=== PATIENT | male | born 1960 | race Caucasian/White ===

== ENCOUNTER 2017-03-23 03:02 | Emergency (ER) | payer OTHER ==
[2017-03-23] MEDS ORDERED: methylPREDNISolone 125 MG* 2 ML VIAL IV ONE (03:24)
[2017-03-23] MEDS ORDERED: Famotidine IV* 10 MG/ML 2 ML (20 mg) IV SLOW PU ONE (03:24)
[2017-03-23] MEDS ORDERED: diPHENhydraMINE IV* 25 MG in NS 0.9% 50 ML* 50 ML IVPB ONE (03:24)
[2017-03-23] MEDS ORDERED: diPHENhydraMINE IV* 50 MG/ML 1 ml VIAL (BENADRYL) ONE (03:40)
--- NOTE | 2017-03-23 04:17 | ED ---
Maci Gregorio Rebecca, scribed for Malachi Harley MD on 03/23/17 at 0323 . Allergic Reaction/Systemic - HPI Summary HPI Summary: Pt is a 56 y/o M who presents to ED c/o facial and lip swelling with pruritis hives on the back since 1400 yesterday. Treated sx with chamomile lotion and Benadryl, last taken at approximately 1930. Sx aggravated and alleviated by nothing. Pt reports his only recent change is a new shampoo. No known allergies and he is not aware of what has caused this reaction. - History of Current Complaint Chief Complaint: EDAllergicReaction Time Seen by Provider: 03/23/17 03:10 Hx Obtained From: Patient Onset/Duration: Started hours ago - 1400 yesterday, Still Present Severity Currently: Severe Pain Intensity: 8 Pain Scale Used: 0-10 Numeric Character: Swelling - Facial and lip, Pruritus - Back, Hives - Back Aggravating Factor(s): Nothing Alleviating Factor(s): Nothing - Allergies/Home Medications Allergies/Adverse Reactions: Allergies Allergy/AdvReac Type Severity Reaction Status Date / Time No Known Allergies Allergy Verified 02/26/15 08:17 PMH/Surg Hx/FS Hx/Imm Hx Endocrine/Hematology History: Denies: Hx Diabetes Cardiovascular History: Reports: Hx Coronary Artery Disease, Hx Hypertension - ON MEDICATION FOR GI History: Reports: Hx Gastroesophageal Reflux Disease - IN THE PAST Musculoskeletal History: Reports: Hx Arthritis Sensory History: Reports: Hx Contacts or Glasses - READING GLASSES Denies: Hx Hearing Aid Opthamlomology History: Reports: Hx Contacts or Glasses - READING GLASSES Neurological History: Reports: Hx Migraine - SEEMS TO RELATED TO POLLENS-TX WITH EXCEDRIN MIGRAINE PER PATIENT - Surgical History Surgery Procedure, Year, and Place: 1985-L4/5 DISCECTOMY. 2004-QUADRUPLE BYPASS. 2010-QUADRUPLE BYPASS. 2009-16 STENTS PLACED in legs and heart. RIGHT KNEE ARTHROSCOPY Hx Anesthesia Reactions: No Infectious Disease History: No Infectious Disease History: Denies: Traveled Outside the [place] in Last 30 Days - Family History Known Family History: Positive: Cardiac Disease, Diabetes, Other - [place] - Social History Alcohol Use: Occasionally Substance Use Type: Reports: None Smoking Status (MU): Former Smoker Amount Used/How Often: 1 PPD X 30 YEARS Have You Smoked in the Last Year: No Review of Systems Positive: Other - Facial and lip swelling Positive: Other - Pruritic hives on the back All Other Systems Reviewed And Are Negative: Yes Physical Exam Triage Information Reviewed: Yes Vital Signs On Initial Exam: Initial Vitals Temp Pulse Resp BP Pulse Ox 100.9 F 104 24 120/68 96 03/23/17 03:11 03/23/17 03:11 03/23/17 03:11 03/23/17 03:11 03/23/17 03:11 Vital Signs Reviewed: Yes Appearance: Positive: Well-Appearing, No Pain Distress Skin: Positive: Warm, Other - patchy diffuse yurticarial rash Head/Face: Positive: Other - periorbital and perioral edema Eyes: Positive: ELOISE ENT: Positive: Hearing grossly normal, Pharynx normal Neck: Positive: Supple Respiratory/Lung Sounds: Positive: Clear to Auscultation, Breath Sounds Present Cardiovascular: Positive: RRR Abdomen Description: Positive: Nontender, Soft Bowel Sounds: Positive: Present Musculoskeletal: Positive: Strength/ROM Intact Neurological: Positive: Alert, Oriented to Person Place, Time Diagnostics - Vital Signs Vital Signs Temp Pulse Resp BP Pulse Ox 03/23/17 03:11 100.9 F 104 24 120/68 96 - Laboratory Lab Statement: Any lab studies that have been ordered have been reviewed, and results considered in the medical decision making process. Re-Evaluation - Re-Evaluation First Eval Re-Evaluation Time: 05:11 Change: Improved Comment: Pt is doing significantly better. Allergic Reaction Course/Dx - Course Assessment/Plan: Pt is a 56 y/o M who presents to ED c/o facial and lip swelling with pruritis hives on the back since 1400 yesterday. Treated sx with chamomile lotion and Benadryl, last taken at approximately 1930. Sx aggravated and alleviated by nothing. Pt reports his only recent change is a new shampoo. In the ED course, pt was administered Benadryl, Pepcid and Solu-Medrol which improved sx. Pt will be D/C to home with Dx of allergic reactoin, Rx for Benadyrl, Pepcid and Deltasone and a follow up with his PCP. He understands and agrees. - Diagnoses Provider Diagnoses: Allergic reaction Discharge - Discharge Plan Condition: Stable Disposition: HOME Prescriptions: Famotidine TAB* [Pepcid 20 MG TAB*] 20 mg PO DAILY #10 tab diPHENhydraMINE PO* [Benadryl PO 25 MG TAB*] 25 mg PO Q6H #20 tab predniSONE TAB* [Deltasone TAB*] 40 mg PO DAILY #8 tab Patient Education Materials: General Allergic Reaction (ED) Referrals: Winston Rahman MD [Primary Care Provider] - 3 Days Additional Instructions: Return to ED for any returning or worsening symptoms. The documentation as recorded by the Maci shelley Rebecca accurately reflects the service I personally performed and the decisions made by , Malachi Harley MD.
[2017-03-23 05:36] VITALS: BP 107/66
== END 2017-03-23 05:33 | disposition home or self-care (01) ==
LOC: ED 03:02
DX: T78.40XA Allergy, unspecified, initial encounter (principal); X58.XXXA Exposure to other specified factors, initial encounter; L50.9 Urticaria, unspecified
CPT/HCPCS: 99283; J1200; J2930

== ENCOUNTER 2017-03-23 17:36 | Emergency (ER) | payer OTHER ==
[2017-03-23 17:50] VITALS: BP 121/69
[2017-03-23] MEDS ORDERED: diPHENhydraMINE IV* 50 MG/ML 1 ml VIAL (BENADRYL) IM ONE ×2 (18:02→18:04)
[2017-03-23] MEDS ORDERED: Famotidine TAB* 20 MG PO ONE (18:02)
[2017-03-23] MEDS ORDERED: predniSONE TAB* 20 MG PO ONE (18:02)
--- NOTE | 2017-03-23 18:12 | UC ---
Allergic Reaction HPI - HPI Summary HPI Summary: had an allergic reaction to something yesterday at 1400---at 2 this am he went to the emergency department---rx with pepcid benadryl and solumedrol.. Later today he started the meds---but the welts itching and now swelling have returned - - History of Current Complaint Chief Complaint: UCAllergicReaction Stated Complaint: ALLERGIC REACTION Time Seen by Provider: 03/23/17 17:56 Hx Obtained From: Patient Onset/Duration: Gradual Onset, Lasting Hours, Still Present Severity Initially: Moderate Severity Currently: Moderate Location: Diffuse Character: Swelling, Pruritus Aggrevating Factor(s): Nothing Alleviating Factor(s): Nothing Associated Signs And Symptoms: Positive: Negative - Related Hx Possible Reaction To: Unknown - Allergies/Home Medications Allergies/Adverse Reactions: Allergies Allergy/AdvReac Type Severity Reaction Status Date / Time No Known Allergies Allergy Verified 02/26/15 08:17 PMH/Surg Hx/FS Hx/Imm Hx Previously Healthy: Yes Endocrine History: Dyslipidemia Cardiovascular History: Cardiac Disease, Hypertension - Surgical History Surgical History: Yes Surgery Procedure, Year, and Place: 1985-L4/5 DISCECTOMY. 2004-QUADRUPLE BYPASS. 2010-QUADRUPLE BYPASS. STENTS PLACED in legs and heart. RIGHT KNEE ARTHROSCOPY - Family History Known Family History: Positive: Cardiac Disease, Diabetes, Other - [place] - Social History Occupation: Employed Full-time Lives: With Family Alcohol Use: Occasionally Substance Use Type: None Smoking Status (MU): Former Smoker Amount Used/How Often: 1 PPD X 30 YEARS Have You Smoked in the Last Year: No When Did the Patient Quit Smoking/Using Tobacco: 2004 Review of Systems Constitutional: Negative Skin: Rash - uticaria Eyes: Negative ENT: Negative Respiratory: Negative Cardiovascular: Negative Gastrointestinal: Negative Genitourinary: Negative Motor: Negative Neurovascular: Negative Musculoskeletal: Edema - palms/hands Neurological: Negative Psychological: Negative All Other Systems Reviewed And Are Negative: Yes Physical Exam Triage Information Reviewed: Yes Appearance: Well-Appearing, No Pain Distress, Well-Nourished Vital Signs: Initial Vital Signs Temp 98.4 F 03/23/17 17:38 Pulse 82 03/23/17 17:38 Resp 18 03/23/17 17:38 BP 121/69 03/23/17 17:38 Pulse Ox 99 03/23/17 17:38 Vital Signs Reviewed: Yes Eye Exam: Normal Eyes: Positive: Conjunctiva Clear ENT Exam: Normal ENT: Positive: Normal ENT inspection, Hearing grossly normal, Pharynx normal, TMs normal. Negative: Nasal congestion, Nasal drainage, Trismus, Muffled/ hoarse voice Dental Exam: Normal Neck exam: Normal Neck: Positive: Supple, Nontender Respiratory Exam: Normal Respiratory: Positive: Chest non-tender, Lungs clear, Normal breath sounds, No respiratory distress, No accessory muscle use Cardiovascular Exam: Normal Cardiovascular: Positive: RRR, No Murmur, Pulses Normal, Brisk Capillary Refill Musculoskeletal Exam: Normal Musculoskeletal: Positive: Strength Intact, ROM Intact, No Edema Neurological Exam: Normal Neurological: Positive: Alert, Muscle Tone Normal Psychological Exam: Normal Psychological: Positive: Normal Response To Family Skin: Positive: rashes - urticaria-scattered thighs and abdomen Re-Evaluation - Re-Evaluation First Eval Change: Improved - symptoms resolving---feels better Allergic Reaction Course/Dx - Differential Dx/Diagnosis Differential Diagnosis/HQI/PQRI: Anaphylaxis, Angioedema, Local Allergic Reaction, Urticaria Provider Diagnoses: Urticaria, allergic reaction Discharge - Discharge Plan Condition: Stable Disposition: HOME Patient Education Materials: Urticaria (ED), General Allergic Reaction (ED) Referrals: Winston Rahman MD [Primary Care Provider] - 2 Days Additional Instructions: Continue medications as prescribed by Emergency Department and return as needed- --cool compresses will be helpful as well
== END 2017-03-23 19:31 | disposition home or self-care (01) ==
LOC: UCEAST 17:36
DX: L50.9 Urticaria, unspecified (principal); T78.40XA Allergy, unspecified, initial encounter; E78.5 Hyperlipidemia, unspecified; I10 Essential (primary) hypertension; Z95.1 Presence of aortocoronary bypass graft; Z87.891 Personal history of nicotine dependence
CPT/HCPCS: 96372; 99212; A9270-GY; G0463; J1200; J7512

== ENCOUNTER 2017-03-24 08:38 | Emergency (ER) | payer OTHER ==
[2017-03-24] MEDS ORDERED: EPINEPHrine AMP 1 MG/ML IM ONE (09:10)
--- NOTE | 2017-03-24 09:18 | UC ---
Allergic Reaction HPI - HPI Summary HPI Summary: Started getting painful, itchy, swollen areas on hands, groin, neck, scalp, and face 2 days ago at 1400. Went to the ED for these symptoms at 0200 yesterday, was given IV solumedrol, diphenhydramine, famotidine, and d/kinsey on PO prednisone , famotidine, and diphenhydramine. Came to urgent care last night approx 1800 because symptoms were returning, was given more prednisone, famotidine, and IV benadryl. Took next fose of prednisone this morning, last dose of benadryl at 0400, and swelling in hands, face, scalp, and groin is even worse. Before medical treatment both times yesterday pt had sensation of shortness of breath which resolved after medication. It is back today, though pt denies swelling in tongue, wheezing, or coughing. Has no idea what he's reacting to. - History of Current Complaint Chief Complaint: UCAllergicReaction Stated Complaint: POSSIBLE ALLERGRIC REACTION Time Seen by Provider: 03/24/17 08:58 Hx Obtained From: Patient Onset/Duration: Gradual Onset, Lasting Days Severity Initially: Moderate Severity Currently: Severe Character: Swelling, Pruritus, Pain, Hives Alleviating Factor(s): Antihistamines Associated Signs And Symptoms: Positive: Difficulty Breathing - mild, Rash. Negative: Lightheadedness, Nausea, Throat Tightening - Allergies/Home Medications Allergies/Adverse Reactions: Allergies Allergy/AdvReac Type Severity Reaction Status Date / Time No Known Allergies Allergy Verified 03/24/17 08:52 Home Medications: Home Medications Troy-3 Fatty Acids [Fish Oil] 2 cap PO DAILY 03/24/17 [History Confirmed ] diPHENhydraMINE PO* [Benadryl PO 25 MG TAB*] 2 tab PO Q6H 03/24/17 [History Confirmed 03/24/17] PMH/Surg Hx/FS Hx/Imm Hx Cardiovascular History: Cardiac Disease - bypass, stents - Surgical History Surgical History: Yes Surgery Procedure, Year, and Place: 1985-L4/5 DISCECTOMY. 2004-QUADRUPLE BYPASS. 2010-QUADRUPLE BYPASS. 2009-16 STENTS PLACED in legs and heart. RIGHT KNEE ARTHROSCOPY - Family History Known Family History: Positive: Cardiac Disease, Diabetes, Other - [place] - Social History Alcohol Use: Occasionally Substance Use Type: None Smoking Status (MU): Former Smoker Amount Used/How Often: 1 PPD X 30 YEARS Have You Smoked in the Last Year: No When Did the Patient Quit Smoking/Using Tobacco: 2004 Review of Systems Constitutional: Negative Skin: Rash, Other - marked swelling Eyes: Negative ENT: Negative Respiratory: Negative Cardiovascular: Negative Gastrointestinal: Negative Genitourinary: Negative Motor: Negative Neurovascular: Negative Musculoskeletal: Negative Neurological: Negative Psychological: Negative All Other Systems Reviewed And Are Negative: Yes Physical Exam Triage Information Reviewed: Yes Appearance: Ill-Appearing - very swollen, Obese Vital Signs: Initial Vital Signs Temp 98.8 F 03/24/17 08:55 Pulse 69 03/24/17 08:55 Resp 18 03/24/17 08:55 BP 102/57 03/24/17 08:55 Pulse Ox 97 03/24/17 08:55 Vital Signs Reviewed: Yes Eye Exam: Normal, Other - PERRL Eyes: Positive: Conjunctiva Clear ENT: Positive: Hearing grossly normal, Pharynx normal - widely patent, TMs normal Dental Exam: Normal Neck: Positive: Supple, Nontender Respiratory: Positive: Lungs clear, Normal breath sounds, No respiratory distress, No accessory muscle use, Decreased breath sounds Cardiovascular Exam: Normal Cardiovascular: Positive: RRR, No Murmur Musculoskeletal Exam: Normal Musculoskeletal: Positive: Strength Intact, ROM Intact Neurological: Positive: Alert Psychological Exam: Normal Skin Exam: Other - marked swelling in face, hands, scalp Skin: Positive: rashes - generalized urticaria Re-Evaluation - Re-Evaluation First Eval Re-Evaluation Time: 09:40 Change: Improved - Feels breathing is easier Second Eval Re-Evaluation Time: 09:52 Change: Improved Allergic Reaction Course/Dx - Course Course Of Treatment: Pt agrees that he needs to be near the hospital with his symptoms so out of control despite oral therapy. Will take private car there driven by . - Differential Dx/Diagnosis Differential Diagnosis/HQI/PQRI: Anaphylaxis, Angioedema, Urticaria Provider Diagnoses: Acute allergic reaction. urticaria. angioedema - Physician Notification/Consults Discussed Patient Care With: Jonna Francisco Time Discussed With Above Provider: 09:57 Instructed by Provider To: Will See In ED Discharge - Discharge Plan Condition: Stable Disposition: HOME Patient Education Materials: Urticaria (ED), Angioedema (ED) Referrals: Winston Rahman MD [Primary Care Provider] - Additional Instructions: As we discussed, your symptoms are dangerous and they are not getting better with oral therapy. Because the swelling can affect your breathing, the hospital is the safest place for you. Please have your drive you right there without any other stops or errands.
[2017-03-24 10:05] VITALS: BP 147/73
== END 2017-03-24 10:06 | disposition home or self-care (01) ==
LOC: UCEAST 08:38
DX: T78.40XA Allergy, unspecified, initial encounter (principal); L50.9 Urticaria, unspecified; T78.3XXA Angioneurotic edema, initial encounter; I25.10 Atherosclerotic heart disease of native coronary artery without angina pectoris; Z95.5 Presence of coronary angioplasty implant and graft; Z87.891 Personal history of nicotine dependence
CPT/HCPCS: 96372; 99212; G0463; J0171

== ENCOUNTER 2017-03-24 11:08 | Observation (INO) | payer OTHER ==
[2017-03-24] MEDS ORDERED: Famotidine IV* 10 MG/ML 2 ML (20 mg) IV SLOW PU ONE (11:33)
[2017-03-24] MEDS ORDERED: diPHENhydraMINE IV* 50 MG/ML 1 ml VIAL (BENADRYL) SLOW PUSH ONE (11:33)
[2017-03-24] MEDS ORDERED: Dexamethasone IV* 10 MG in NS 0.9% 50 ML* 50 ML IVPB ONE (11:34)
[2017-03-24] MEDS ORDERED: Dexamethasone IV* 4 MG/ML 1 ML (4 MG) IV SLOW PU ONE (11:34)
[2017-03-24 11:50] LABS: Hematocrit 46 % (42-52); Hemoglobin 15.9 g/dl (14.0-18.0); Mean Corpuscular HGB Conc 35 g/dl (31-36); Mean Corpuscular Hemoglobin 31 pg (27-31); Mean Corpuscular Volume 90 fL (80-94); Mean Platelet Volume 8 um3 (7.4-10.4); Red Cell Distribution Width 14 % (10.5-15); White Blood Count 8.3 10^3/ul (3.5-10.8)
[2017-03-24 12:05] LABS: BUN/Creatinine Ratio 22.3 (8-20); Blood Urea Nitrogen 23 mg/dL (6-24); CO2 Carbon Dioxide 24 mmol/L (22-32); Calcium 9.2 mg/dL (8.6-10.3); Chloride 96 mmol/L (101-111); EGFR African American 95.7 (>60); EGFR Non-African American 74.4 (>60); Glucose 297 mg/dL (70-100); Sodium 129 mmol/L (133-145)
[2017-03-24 12:13] LABS: Anion Gap 9 mmol/L (2-11)
[2017-03-24] MEDS ORDERED: Albuterol/Ipratropium NEB.SOL* Albuterol 2.5 MG/Ipratropium 0.5 MG 3 ML INH ONE (13:58)
[2017-03-24] MEDS ORDERED: Acetaminophen TAB* 325 MG PO PRN (15:02)
[2017-03-24] MEDS ORDERED: Ondansetron INJ* 2 MG/ML VIAL IV PRN (15:02)
[2017-03-24] MEDS ORDERED: LORazepam TAB(*) 1 MG PO PRN (15:09)
[2017-03-24] MEDS ORDERED: NS 0.9% 1000 ML* 1,000 ML IV SCH (15:30)
[2017-03-24] MEDS: diPHENhydraMINE IV* 50 MG/ML 1 ml VIAL (BENADRYL) IV SCH ×2 (15:43→21:20)
[2017-03-24] MEDS ORDERED: diPHENhydraMINE IV* 50 MG in NS 0.9% 50 ML* 50 ML IVPB SCH (16:00)
[2017-03-24] MEDS ORDERED: diPHENhydraMINE IV* 50 MG/ML 1 ml VIAL (BENADRYL) IV SCH (16:00)
[2017-03-24] MEDS: methylPREDNISolone SOD 40 MG* 1 ML VIAL IV SCH ×2 (17:01→23:22)
[2017-03-24] MEDS ORDERED: Famotidine IV* 10 MG/ML 2 ML (20 mg) ONE (20:45)
[2017-03-24] MEDS: Heparin VIAL(*) 5000 UNITS/ML VIAL (FIVE THOUSAND) SUBCUT SCH (21:14)
[2017-03-24] MEDS: Metoprolol Tartrate TAB* 25 MG PO SCH (21:55)
--- NOTE | 2017-03-25 01:59 | HP ---
CC: Dr. Gee * HISTORY AND PHYSICAL: DATE OF ADMISSION: 03/24/17 PRIMARY CARE PROVIDER: Dr. Gee. ATTENDING PHYSICIAN WHILE IN THE HOSPITAL: Dr. Rachelle Wilkins *(report dictated by Christopher Anna NP) CHIEF COMPLAINT: 1. Hives. 2. Pruritus. 3. Swollen lips and eyes. HISTORY OF PRESENT ILLNESS: Mr. Riggs is a 56-year-old male patient, who has a history of CAD, hypertension, hyperlipidemia, erectile dysfunction, GERD, NV, history of carotid artery disease. He comes into the ER today stating that Saturday night he used his son's shampoo, which was new to him. About 2 in the morning ongoing into Saturday morning, he started to getting itchy. He had hives on his hands, thighs, on his chest. His lips were swollen. His eyes were swelled up. He was concerned and came into the ER. Here, he got some epi , Benadryl, Solu-Medrol, Pepcid. He was feeling great, went home, took his a.m. medications, the only change he has had in his meds is he has now been on atorvastatin, which was started 2 months ago. He got itchy that evening. Again , he got itching hives, swollen lips, swollen tongue, swollen eyes, and he went to Urgent Care, again got epi, Benadryl, Pepcid, steroids, was sent home on those, doing well and again on today, took his meds and he got worse again. He says that he has not been using his son's shampoo anymore, he stopped that. There have not been changes in detergents. He has not been stung by any bees or any bug bites that he knows of. He was concerned obviously and he came back in, was evaluated here, was given again IV steroids, and Benadryl, and Pepcid, and now he is feeling better, but because this is the third time he has been into the ER and Urgent Care for an allergic reaction, we were asked to evaluate for admission. The patient denies having any trouble swallowing, denies having any difficulty with breathing, denies any chest pain. He says that he is nauseous, but no other changes in his medications and he has been on lisinopril for about 11 years now. He came in, was evaluated, we were asked to evaluate for admission. PAST MEDICAL HISTORY: Significant for: 1. CAD. 2. Hypertension. 3. Hyperlipidemia. 4. GERD. 5. Erectile dysfunction. 6. Carotid artery disease. 7. History of NV. PAST SURGICAL HISTORY: He has had CABG x2, which were both quadruple bypasses, he has had about 5 cardiac catheterizations for total of 16 stents. He has had an L4- L5 diskectomy. He has had a right knee arthroscopy x2 and he has had a tonsillectomy. MEDICATIONS: The home meds according to the list that he provided include: 1. Ativan 2 mg at bedtime as needed for sleep. 2. Lisinopril 5 mg daily. 3. Gemfibrozil 600 mg daily. 4. Famotidine 20 mg daily. 5. Plavix 75 mg daily. 6. Lipitor 80 mg daily. 7. Aspirin 325 mg p.o. daily. 8. Prednisone 40 mg p.o. daily, burst for allergic reaction. 9. Benadryl 2 tablets p.o. every 6 hours. 10. Henniker-3 fatty acids 1 capsule p.o. b.i.d. 11. Lopressor 25 mg p.o. b.i.d. ALLERGIES TO MEDICATIONS: Included no known drug allergies. FAMILY HISTORY: His mother had a history of cancer and dementia. Father had a history of NV. SOCIAL HISTORY: He is a former smoker, he smoked about 2 packs a day for about 30 years. He is . Surrogate decision maker is his . REVIEW OF SYSTEMS: There is no documented fever. He denied any significant weight change. There was no double vision. He denies having any ear discharge. There was no rhinorrhea. There was no sore throat, no thyroid enlargement. Denies having any chest pain. There is no orthopnea, no nocturnal dyspnea. There is no abdominal pain. There was no nausea, no vomiting. No dysuria, no frequency. No seizure, no loss of consciousness. There is pruritus. There is no skin ulceration. Review of 14 systems was completed, all others negative. PHYSICAL EXAMINATION GENERAL: At this time, Mr. Riggs is a 56-year-old male patient. He is sitting in the ER stretcher. He appears to be well nourished, well developed. VITAL SIGNS: Reveals blood pressure 158/71 with a pulse of 80, respirations 20 , O2 sat 95%, temperature 98.2. HEENT: Head is atraumatic and normocephalic. Eyes: EOMs are intact. Sclerae are anicteric. Throat: Oral mucosa appears to be moist. No oropharyngeal erythema. NECK: Supple. LUNGS: Clear to auscultation. No wheezes, rales, or rhonchi. HEART: Sounds S1, S2. Regular rate and rhythm. No murmurs, rubs, or gallops. ABDOMEN: Soft, flat, and nontender. Bowel sounds are present. EXTREMITIES: Pulses were 2+ throughout. He is able to move all 4 extremities with 5/5 strength. NEUROLOGIC: He is awake, alert, oriented x3. His speech is clear. Tongue midline. No gross focal deficits. SKIN: Intact with exception to both his hands, he does have areas of erythema and swelling. He does have some hives and urticaria noted to his groin, mostly to his hands, and not on his chest or back. Again, he does have periorbital edema bilaterally, but his lip does not appear to be swollen now. Otherwise, his skin is intact. DIAGNOSTIC STUDIES/LAB DATA: Reveal WBC of 8.3, RBC of 5.10, hemoglobin of 15.0, hematocrit of 46, and platelet count 214. His sodium was 129, potassium was 4.4, chloride of 96, bicarb 24, BUN was 23, creatinine 1.03, glucose of 297 , calcium 9.2. Trop 0. He did have an EKG obtained today, which showed a normal sinus rhythm. He does have inverted T waves in lead I and in V4, V5, V6, and V3. I do not have a previous EKG for comparison. Old medical records were reviewed. ASSESSMENT AND PLAN: Mr. Riggs is a 56-year-old male patient coming in to the ER today with complaints of pruritus and urticaria. Now, on evaluation today, this is his third time being in the ER despite outpatient therapy for an allergic reaction. He will be admitted under observation status for: 1. Allergic reaction: Etiology is unclear. He did recently have knee surgery a couple of weeks ago and the only medication that was new for him was Tylenol with Codeine, but he has not taken that since 03/11/17. He has been on atorvastatin, which is new for the last 2 months and he is also on lisinopril and he did use his son's shampoo, which may be the culprit. My plan is to stop lisinopril, stop the atorvastatin. We will go ahead and put him on steroids, Pepcid, Benadryl, and follow him closely, give him epi should he need it. He does not need it at this point and we will monitor him here in our telemetry floor. He does not appear to have airway compromise. 2. Coronary artery disease: Continue his Plavix, aspirin, and beta conrado. Holding statin for now as he may be allergic. 3. Hypertension: We will go ahead and continue the beta conrado. At some point, he may need to go back on an ARB as the lisinopril may be the culprit of this. 4. Hyperlipidemia: Continue his Lopid and omega-3. 5. Gastroesophageal reflux disease: Not an active issue, follow with his primary. 6. Carotid artery disease: Continue with the aspirin and Plavix. We need to get him back on his statin. He was taking Crestor previously. 7. DVT prophylaxis: He will be placed on heparin subcu. 8. Code status: Full code. 9. Fluids, electrolytes, and nutrition: He can have a heart healthy diet. TIME SPENT: On the admission was approximately 60 minutes, greater than half the time spent [id number] with the patient, obtaining my history and physical , the other half time was spent going over the plan of care with the patient and implementing the plan of care. I did discuss the plan of care with my attending, Dr. Wilkins; she is in agreement. CHRISTOPHER ANNA, KAVON [id number]/CPS #: [id number] FLOR
[2017-03-25] MEDS: diPHENhydraMINE IV* 50 MG/ML 1 ml VIAL (BENADRYL) IV SCH ×3 (05:04→17:14)
[2017-03-25 05:07] LABS: Hematocrit 39 % (42-52); Hemoglobin 13.2 g/dl (14.0-18.0); Mean Corpuscular HGB Conc 34 g/dl (31-36); Mean Corpuscular Hemoglobin 31 pg (27-31); Mean Corpuscular Volume 90 fL (80-94); Mean Platelet Volume 8 um3 (7.4-10.4); Red Blood Count 4.27 10^6/ul (4.0-5.4); Red Cell Distribution Width 14 % (10.5-15); White Blood Count 7.4 10^3/ul (3.5-10.8)
[2017-03-25 05:24] LABS: Calcium 8.8 mg/dL (8.6-10.3); EGFR African American 102.6 (>60); EGFR Non-African American 79.8 (>60)
[2017-03-25 05:58] LABS: BUN/Creatinine Ratio 29.9 (8-20); Potassium 4.8 mmol/L (3.5-5.0)
[2017-03-25] MEDS: Heparin VIAL(*) 5000 UNITS/ML VIAL (FIVE THOUSAND) SUBCUT SCH ×2 (06:12→14:02)
[2017-03-25] MEDS ORDERED: Famotidine IV* 10 MG/ML 2 ML (20 mg) ONE (08:32)
[2017-03-25] MEDS: methylPREDNISolone SOD 40 MG* 1 ML VIAL IV SCH ×2 (08:46→17:15)
[2017-03-25] MEDS: Metoprolol Tartrate TAB* 25 MG PO SCH (08:48)
[2017-03-25] MEDS ORDERED: Aspirin EC TAB* 325 MG PO SCH (09:00)
[2017-03-25] MEDS ORDERED: Gemfibrozil TAB* 600 MG PO SCH (09:00)
[2017-03-25] MEDS ORDERED: Clopidogrel TAB* 75 MG PO SCH (09:00)
[2017-03-25] MEDS ORDERED: oxyCODONE/Acetamin 5/325 MG* TAB PO PRN (12:27)
[2017-03-25] MEDS ORDERED: Artificial Tears* 15 ML BTL BOTH EYES PRN (12:27)
[2017-03-25 18:11] VITALS: BP 118/51
--- NOTE | 2017-03-26 02:58 | DS ---
CC: Dr. Gee * DISCHARGE SUMMARY: DATE OF ADMISSION: 03/24/17 DATE OF DISCHARGE: 03/25/17 ADMISSION DIAGNOSES: 1. Allergic reaction secondary . 2. Coronary artery disease. 3. Hypertension. 4. Hyperlipidemia. 5. Gastroesophageal reflux disease. 6. Carotid artery disease. DISCHARGE DIAGNOSES: 1. Allergic reaction secondary . 2. Coronary artery disease. 3. Hypertension. 4. Hyperlipidemia. 5. Gastroesophageal reflux disease. 6. Carotid artery disease. 7. Type 2 diabetes. HOSPITAL COURSE: The patient is a 56-year-old gentleman, who presented to the [facility] with a chief complaint of hives and pruritus and swollen lips and eyes. Please see H and P for further details. The patient felt it might be his shampoo. He has been on lisinopril for 10 years. It was unclear as to the etiology, he has not started any new medications. The patient was admitted, placed on Solu-Medrol and Benadryl, improved dramatically. The patient felt he was stable for discharge on . It should be noted his glucose was over 300 and his hemoglobin A1c was 8.6. The patient was informed, he likely has additional diagnosis of diabetes mellitus and we started him on metformin, gave him the glucometer and gave him diabetic diet teaching. He will need to follow up with his PCP concerning the same. One final note; although the lisinopril he has been taking for 11 years, it still can produce an angioedema at any time in its course, so therefore we have discontinued his lisinopril. PHYSICAL EXAMINATION ON THE DAY OF DISCHARGE: Obese gentleman lying in bed in no acute distress. Vital Signs: Temperature 98.2 degrees, heart rate 67 beats per minute, respiratory rate 26 breaths per minute, pulse oxygen 95%, blood pressure is 111/54. HEENT: Normocephalic, atraumatic. Pupils equal, round, and reactive to light. He has got moist mucous membranes. Neck: Supple. No JVD, bruits, palpable thyroid, or lymphadenopathy. Chest: Clear to auscultation and percussion bilaterally. Cardiovascular Exam: S1 and S2 appreciated. Abdominal Exam: Obese. Positive bowel sounds in all 4 quadrants. Soft, nontender, and nondistended. Extremities: No cyanosis or clubbing. He does have bilateral edema. +2 peripheral pulses bilaterally. Neuro: He is alert and oriented x3. He moves all extremities. Skin: He does still have some erythema, but no swollen lips, no swollen eyelids. He does have some swollen hands and some erythema on his torso. It is more of a maculopapular distribution. STUDIES DONE WHILE IN THE HOSPITAL: None. DISCHARGE MEDICATIONS: 1. Lorazepam 2 mg at bedtime as needed. 2. Gemfibrozil 600 mg in the morning. 3. Famotidine 20 mg daily. 4. Plavix 75 mg daily. 5. Lipitor 80 mg daily. 6. Aspirin 325 mg daily. 7. [place]-3 fatty acid 1 capsule twice a day. 8. Metoprolol tartrate 25 mg twice daily. 9. Percocet 1 tablet every 6 hours as needed, this is new. 10. Metformin 500 mg twice a day, this is new. 11. Medrol Dosepak, this is new, take as directed. 12. Hydrocortisone cream apply twice a day. This is new. 13. Artificial tears drop both eyes every 2 hours. This is new. DISCHARGE PLAN: The patient discharged home. He is to follow up with his PCP in 1 week. The patient will return to the ED if he develops any worsening symptoms. Again, we have discontinued his lisinopril, has been started on metformin for diabetes. TIME SPENT: Over 40 minutes was spent on this discharge, more than 25 minutes of which was spent in direct [id number] contact with the patient in evaluation , physical exam, counseling, and coordination of care. [id number]/[facility] #: [id number] FLOR
== END 2017-03-25 18:30 | disposition home or self-care (01) ==
LOC: ED 11:08 → MEDTELE 14:53
PROVIDERS: ADMIT Internal Medicine; ATTEND Internal Medicine
DX: T78.40XA Allergy, unspecified, initial encounter (principal); L50.0 Allergic urticaria; L29.9 Pruritus, unspecified; R22.0 Localized swelling, mass and lump, head; E11.8 Type 2 diabetes mellitus with unspecified complications; Z79.84 Long term (current) use of oral hypoglycemic drugs; I25.10 Atherosclerotic heart disease of native coronary artery without angina pectoris; I65.29 Occlusion and stenosis of unspecified carotid artery; E78.5 Hyperlipidemia, unspecified; I10 Essential (primary) hypertension
CPT/HCPCS: 36415; 80048; 83036; 84484; 85025; 85027; 93005; 94760; 99284; A9270-GY; G0378; J1100; J1200; J1644; J2920

== ENCOUNTER 2017-04-01 15:41 | Emergency (ER) | payer OTHER ==
[2017-04-01 15:50] VITALS: BP 142/78
[2017-04-01] MEDS ORDERED: Fluorescein Sodium TOPICAL* 1 MG TEST OPHTHALMIC ONE (16:40)
[2017-04-01] MEDS ORDERED: BSS OPTH.SOL* BTL OPHTHALMIC ONE (16:41)
--- NOTE | 2017-04-01 16:58 | UC ---
Eye Complaint HPI - HPI Summary HPI Summary: left eye with purulent drainage, eye red worsening over the past couple of days - History of Current Complaint Chief Complaint: UCEye Stated Complaint: EYE SWELLING Time Seen by Provider: 04/01/17 16:34 Hx Obtained From: Patient Onset/Duration: Gradual Onset, Lasting Days, Still Present, Worse Since - today Timing: Constant Severity Initially: Mild Severity Currently: Moderate Location of Injury: Conjunctiva Character: Foreign Body Sensation Aggravating Factor(s): Nothing Alleviating Factor(s): Nothing Associated Signs And Symptoms: Positive: Drainage (Purulent). Negative: Photophobia, Vision Impairment Right, Vision Impairment Left, Fever, Swelling - Allergies/Home Medications Allergies/Adverse Reactions: Allergies Allergy/AdvReac Type Severity Reaction Status Date / Time Lisinopril Allergy Rash Verified 04/01/17 15:51 PMH/Surg Hx/FS Hx/Imm Hx Previously Healthy: No Endocrine History: Dyslipidemia Cardiovascular History: Cardiac Disease, Hypertension GI/ History: Gastroesophageal Reflux - Surgical History Surgical History: Yes Surgery Procedure, Year, and Place: 1985-L4/5 DISCECTOMY. 2004-QUADRUPLE BYPASS. 2010-QUADRUPLE BYPASS. STENTS PLACED in legs and heart. RIGHT KNEE ARTHROSCOPY - Family History Known Family History: Positive: Cardiac Disease, Diabetes, Other - [place] - Social History Occupation: Unemployed Lives: With Family Alcohol Use: Rare Substance Use Type: None Smoking Status (MU): Former Smoker Amount Used/How Often: 1 PPD X 30 YEARS Have You Smoked in the Last Year: No When Did the Patient Quit Smoking/Using Tobacco: 2004 Review of Systems Constitutional: Negative Skin: Negative Eyes: Drainage, Eye Redness ENT: Negative Respiratory: Negative Cardiovascular: Negative Gastrointestinal: Negative Genitourinary: Negative Motor: Negative Neurovascular: Negative Musculoskeletal: Negative Neurological: Negative Psychological: Negative All Other Systems Reviewed And Are Negative: Yes Physical Exam Triage Information Reviewed: Yes Appearance: Well-Appearing, No Pain Distress, Well-Nourished Vital Signs: Initial Vital Signs Temp 97.5 F 04/01/17 15:46 Pulse 73 04/01/17 15:46 Resp 18 04/01/17 15:46 BP 142/78 04/01/17 15:46 Pulse Ox 98 04/01/17 15:46 Vital Signs Reviewed: Yes Eye Exam: Normal Eyes: Positive: Conjunctiva Inflamed, Discharge - purulent,, Other: - eomi, perrla----ful-pat stained small abrasion at 1200 on cornea ENT Exam: Normal ENT: Positive: Normal ENT inspection, Hearing grossly normal, Pharynx normal, TMs normal. Negative: Nasal congestion, Nasal drainage, Trismus, Muffled/ hoarse voice Dental Exam: Normal Neck exam: Normal Neck: Positive: Supple, Nontender, No Lymphadenopathy Respiratory Exam: Normal Respiratory: Positive: Chest non-tender, Lungs clear, Normal breath sounds, No respiratory distress, No accessory muscle use Cardiovascular Exam: Normal Cardiovascular: Positive: RRR, No Murmur, Pulses Normal, Brisk Capillary Refill Musculoskeletal Exam: Normal Musculoskeletal: Positive: Strength Intact, ROM Intact Neurological Exam: Normal Neurological: Positive: Alert, Muscle Tone Normal Psychological Exam: Normal Skin Exam: Normal Eye Complaint Course/Dx - Course Course Of Treatment: cipro drops, cool compress, follow with optho. - Differential Dx/Diagnosis Differential Diagnosis/HQI/PQRI: Conjunctivitis, Corneal Abrasion, Penetrating Injury Provider Diagnoses: OD Corneal abrasion/conjuctivitis Discharge - Discharge Plan Condition: Stable Disposition: HOME Patient Education Materials: Corneal Abrasion (ED), How to Use Eye Drops (ED) Referrals: Hiren Balbuena MD [Medical Doctor] - 5 Days
[2017-04-01] MEDS ORDERED: Ciprofloxacin 0.3% OPTH.SOL* 2.5 ML BTL LEFT EYE ONE (16:59)
== END 2017-04-01 17:09 | disposition home or self-care (01) ==
LOC: UCEAST 15:41
DX: S05.01XA Injury of conjunctiva and corneal abrasion without foreign body, right eye, initial encounter (principal); X58.XXXA Exposure to other specified factors, initial encounter; Y93.9 Activity, unspecified; Y92.9 Unspecified place or not applicable; H10.31 Unspecified acute conjunctivitis, right eye; E78.5 Hyperlipidemia, unspecified; I51.9 Heart disease, unspecified; I10 Essential (primary) hypertension; K21.9 Gastro-esophageal reflux disease without esophagitis; Z95.1 Presence of aortocoronary bypass graft; Z87.891 Personal history of nicotine dependence
CPT/HCPCS: 99212; A9270-GY; G0463

== ENCOUNTER 2017-11-09 11:43 | Emergency (ER) | payer OTHER ==
[2017-11-09 11:54] VITALS: BP 155/76
--- NOTE | 2017-11-09 17:36 | UC ---
Son Gregorio Stephanie, scribed for Russell Morales MD on 11/09/17 at 1218 . Throat Pain/Nasal Michele HPI - HPI Summary HPI Summary: The pt is a 56 y/o M presenting to with c/o maxillary and frontal sinus pain that began 10 days ago. Symptoms include yellow nasal discharge, post-nasal drip , RICKS, sore throat and cough. He states his RICKS is similar to those when he has sinusitis. - History of Current Complaint Chief Complaint: UCRespiratory Stated Complaint: CHEST CONGESTION, AND COUGH Time Seen by Provider: 11/09/17 12:02 Hx Obtained From: Patient Onset/Duration: Gradual Onset, Lasting Days - 10, Still Present Severity: Moderate Pain Intensity: 9 Pain Scale Used: 0-10 Numeric Cough: Nonproductive Associated Signs & Symptoms: Positive: Sinus Discomfort, Nasal Discharge, Other - RICKS, sore throat, post-nasal drip - Allergies/Home Medications Allergies/Adverse Reactions: Allergies Allergy/AdvReac Type Severity Reaction Status Date / Time lisinopril Allergy Rash Verified 11/09/17 11:54 PMH/Surg Hx/FS Hx/Imm Hx Endocrine History: Dyslipidemia Cardiovascular History: Cardiac Disease, Hypertension - Surgical History Surgical History: Yes Surgery Procedure, Year, and Place: 1985-L4/5 DISCECTOMY. 2004-QUADRUPLE BYPASS. 2010-QUADRUPLE BYPASS. 2009- STENTS PLACED in legs and heart. RIGHT KNEE ARTHROSCOPY - Family History Known Family History: Positive: Cardiac Disease, Diabetes, Other - [place] - Social History Occupation: Unemployed Lives: With Family Alcohol Use: None Substance Use Type: None Smoking Status (MU): Former Smoker Amount Used/How Often: 1 PPD X 30 YEARS Have You Smoked in the Last Year: No When Did the Patient Quit Smoking/Using Tobacco: 2004 Review of Systems Constitutional: Negative Skin: Negative Eyes: Negative ENT: Sore Throat, Nasal Discharge, Sinus Congestion, Sinus Pain/Tenderness Respiratory: Cough Cardiovascular: Negative Gastrointestinal: Negative Genitourinary: Negative Motor: Negative Neurovascular: Negative Musculoskeletal: Negative Neurological: Negative Psychological: Negative Is Patient Immunocompromised?: No All Other Systems Reviewed And Are Negative: Yes Physical Exam - Summary Physical Exam Summary: VITAL SIGNS: Reviewed. GENERAL: Patient is a well developed and nourished M who is lying comfortable in the stretcher. Patient is not in any acute respiratory distress. HEAD AND FACE: Normocephalic EYES: PERRLA, EOMI x 2. EARS: Hearing grossly intact. MOUTH and NOSE: Oropharynx within normal limits. Maxillary sinus tenderness, green discharge, red nasal mucosa NECK: Supple, trachea is midline, no adenopathy, no JVD, no carotid bruit. CHEST: Symmetric, no tenderness at palpation LUNGS: Clear to auscultation bilaterally. No wheezing or crackles. CVS: Regular rate and rhythm, S1 and S2 present, no murmurs or gallops appreciated. ABDOMEN: Soft, non-tender. Bowel sounds are normal. No abdominal abnormal pulsations. EXTREMITIES: Full ROM in all major joints, no edema, no cyanosis or clubbing. NEURO: Alert and oriented x 3. No acute neurological deficits. Speech is normal and follows commands. SKIN: Dry and warm Triage Information Reviewed: Yes Vital Signs: Initial Vital Signs Temp 98.8 F 11/09/17 11:52 Pulse 63 11/09/17 11:52 Resp 18 11/09/17 11:52 BP 155/76 11/09/17 11:52 Pulse Ox 96 11/09/17 11:52 Vital Signs Reviewed: Yes Throat Pain/Nasal Course/Dx - Course Course Of Treatment: The pt is a 56 y/o M presenting to with c/o maxillary and frontal sinus pain that began 10 days ago. Symptoms include yellow nasal discharge, post-nasal drip, RICKS, sore throat and cough. He states his RICKS is similar to those when he has sinusitis. The patient was found to have increased BP in UC. The patient will follow up with PCP for better control of BP. Patient was instructed to return to the urgent care or go to ER immediately if any of the symptoms return or worsens. Plan of care was discussed with the patient, and patient understands and agrees. All questions were answered to patient satisfaction. There were no further complaints or concerns. - Differential Dx/Diagnosis Differential Diagnosis/HQI/PQRI: Influenza, Otitis Media, Tonsillitis, URI Provider Diagnoses: sinusitis. poorly controlled HTN Discharge - Sign-Out/Discharge Documenting (check all that apply): Discharge - Discharge Plan Condition: Stable Disposition: HOME Prescriptions: Amoxicillin PO (*) [Amoxicillin 875 MG (*)] 875 mg PO BID #20 tab Patient Education Materials: Sinusitis (ED) Referrals: Winston Rahman MD [Primary Care Provider] - Additional Instructions: FOLLOW UP WITH YOUR PRIMARY CARE PROVIDER WITHIN ONE WEEK FOR HIGH BLOOD PRESSURE NOTED TODAY. RETURN TO URGENT CARE FOR ANY WORSENING OR NEW SYMPTOMS. - Billing Disposition and Condition Condition: STABLE Disposition: HOME The documentation as recorded by the Son shelley Stephanie accurately reflects the service I personally performed and the decisions made by me, Russell Morales MD.
== END 2017-11-09 12:17 | disposition home or self-care (01) ==
LOC: UCEAST 11:43
DX: J32.9 Chronic sinusitis, unspecified (principal); I10 Essential (primary) hypertension; I25.10 Atherosclerotic heart disease of native coronary artery without angina pectoris; Z95.1 Presence of aortocoronary bypass graft; Z95.5 Presence of coronary angioplasty implant and graft; E78.5 Hyperlipidemia, unspecified; Z88.8 Allergy status to other drugs, medicaments and biological substances; Z87.891 Personal history of nicotine dependence
CPT/HCPCS: 99212; G0463

== ENCOUNTER 2019-04-19 11:43 | Emergency (ER) | payer OTHER ==
--- OUTSIDE RECORDS SUMMARY | 2019-04-19 11:48 | XMS REPORT | Continuity of Care Document ---
:1960 External Reference #:[id number] Author Name Zac Gaitan MD (transmitted by agent of provider Wilberto Small) Address [address] [place] [id number] Care Team Providers Name Role Phone Winston Rahman MD - Family Care Team Information Natural Remedy Consultant [phone] Medicine Problems Description No Information Available Social History Type Date Description Comments Sex Unknown ETOH Use Has consumed alcohol in the past Tobacco Use Start: Unknown End: Patient is a former smoker Unknown Smoking Status Reviewed: 03/06/19 Patient is a former smoker Exercise Type/Frequency Exercises sporadically Allergies, Adverse Reactions, Alerts Active Allergies Reaction Severity Comments Date Niacin 03/05/2019 Lisinopril Hives 03/05/2019 Oxycodone Swelling of face and throat 03/06/2019 Medications Active Medications SIG Qnty Indications Ordering Provider Date Zolpidem Tartrate 1 tab by mouth Unknown 10mg every night at Tablets bedtime Trazodone HCL 2 tabs by mouth Unknown 50mg Tablets every day at bedtime Nitroglycerin 1 sl q5mins x3 as Unknown 0.4mg Tablets needed for chest Sub pain Aspirin Adult take one tab by Unknown 325mg Tablets mouth daily Atorvastatin Calcium 1 by mouth every Unknown 80mg day Tablets Metoprolol Succinate ER 1 by mouth twice Unknown daily 25mg Tablets ER 24HR Naproxen 1 tablet with Unknown 500mg Tablets food by mouth twice a day as needed Clopidogrel Bisulfate 1 by mouth every Unknown 75mg day Tablets Gemfibrozil take one tablet Unknown 600mg Tablets by mouth twice a day Metformin HCL 1 by mouth twice Unknown 500mg Tablets a day Fish Oil 4 by mouth every Unknown 500mg Capsules day Immunizations Description No Information Available Vital Signs Date Vital Result Comment 03/06/2019 1:28pm Height 71 inches 5'11" Weight 265.00 lb Heart Rate 57 /min BP Systolic Standing 132 mmHg BP Diastolic Standing 84 mmHg Respiratory Rate 14 /min Body Temperature 98.3 F Pain Level 7 O2 % BldC Oximetry 95 % BMI (Body Mass Index) 37.0 kg/m2 Results Description No Information Available Procedures Description No Information Available Medical Devices Description No Information Available Encounters Description No Information Available Assessments Date Code Description Provider 03/06/2019 G56.03 Carpal tunnel syndrome, bilateral upper limbs Zac Gaitan MD 03/06/2019 M65.322 Trigger finger, left index finger Zac Gaitan MD Plan of Treatment 03/06/2019 - Zac Gaitan MDG56.03 Carpal tunnel syndrome, bilateral upper limbsFollow up:Follow up: 10-14 days [id number] Trigger finger, left index finger Functional Status Description No Information Available Mental Status Description No Information Available Referrals Description No Information Available
--- OUTSIDE RECORDS SUMMARY | 2019-04-19 11:49 | XMS REPORT | Continuity of Care Document ---
:1960 External Reference #:[id number] Author Name Winston Rahman MD Address [address] [place] [place] [address] Care Team Providers Name Role Phone Winston Rahman MD Care Team Information [employer] Unavailable Payers Date Identification Numbers Payment Provider Subscriber Policy Number: [id number] [place] Medicaid Emanuel Riggs PayID: [id number] [address] [address] [place] [address] Problems Active Problems Provider Date Carotid artery occlusion Winston Rahman MD Onset: 01/16/2011 Depressive disorder Winston Rahman MD Onset: 12/19/2010 Atherosclerosis of arteries of the Winston Rahman MD Onset: 09/05/2010 extremities Family history of malignant neoplasm of Winston Rahman MD Onset: 2009 gastrointestinal tract Impotence of organic origin Winston Rahman MD Onset: 09/23/2006 Obesity Winston Rahman MD Onset: 07/16/2006 Benign essential hypertension Winston Rahman MD Onset: 07/16/2006 Mixed hyperlipidemia Winston Rahman MD Onset: 07/16/2006 Disorders of initiating and maintaining Winston Rahman MD Onset: 2005 sleep Coronary arteriosclerosis Winston Rahman MD Onset: 04/08/2006 Type 2 diabetes mellitus Winston Rahman MD Onset: 10/14/2016 Insomnia Winston Rahman MD Onset: 03/14/2018 Inactive Problems Disorder of carbohydrate transport Winston Rahman MD Onset: 07/04/2011 Inactive: 10/14/2016 Family History Date Family Member(s) Observation Comments Father DM2 First Brother DM2 Paternal Aunts Cancer, Colon Social History Type Date Description Comments Sex Unknown Marital Status Lives With Spouse Smoke-Free Home is smoke-free 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 ETOH Use 02/2006 Currently consumes alcohol Has dc'd 03/03 - was moderately heavy Tobacco Use Start: Unknown End: Patient is a former smoker Quit after 04/03 CABG Unknown Allergies, Adverse Reactions, Alerts Active Allergies Reaction Severity Comments Date Niacin 04/30/2007 Lisinopril Severe Hives,Swelling 03/26/2017 Medications Active Medications SIG Qnty Indications Ordering Provider Date Zolpidem Tartrate 1 by mouth at 30tabs F51.01 Lacey, 04/01/2018 10mg bedtime for sleep MD Winston Tablets G47.00 G47.9 Trazodone HCL 2 by mouth every 60tabs G47.00 Winston Rahman, 2017 50mg Tablets night before MD bedtime Nitroglycerin 1 sl as needed 25tabs I25.10 Winston Rahman, 03/10/2018 0.4mg Tablets chest pain Sub Aspirin 1 by mouth every I25.10 Lacey, 01/31/2018 325mg Tablets day Kaylyn, 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 Acid Honey Blender Maximum 1 po bid for 7 14tabs L50.0 Lacey, 01/31/2018 Strength days Kaylyn, 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 20mg Tablets Atorvastatin Calcium 1 by mouth every 90tabs E78.2 Winston Rahman, 80mg day Tablets I25.10 Metoprolol Tartrate 1 pill by mouth 180tabs I10 Winston Rahman MD 25mg twice a day Tablets I25.10 Naproxen 1 by mouth twice 60tabs M25.549 Winston Rahman, 09/24/2013 500mg a day with food MD Tablets as needed joint pain M25.561 Clopidogrel Bisulfate take 1 tablet by 90tabs I25.10 Winston Rahman, 04/06/2010 mouth once daily MD 75mg Tablets Gemfibrozil take one tablet 90tabs E78.2 Winston Rahman, 04/30/2007 600mg Tablets by mouth once MD daily Metformin HCL 1 by mouth twice 180tabs E11.9 Winston Rahman, 500mg a day MD Tablets Fish Oil 4 by mouth Unknown 500mg Capsules every day History Medications Amoxicillin/Clavulanate 1 by mouth 20tabs J01.00 Porter, 08/21/2018 - Potassium twice a day x DO Shoaib 08/31/2018 875-125mg Tablets 10 days Zolpidem Tartrate take 2 30tabs F51.01 Lacey, 03/14/2018 - 5mg Tablets tablets by MD Winston 04/01/2018 mouth before bedtime for sleep G47.00 Prednisone 3 by mouth 18tabs L50.0 Lacey, 01/31/2018 - 20mg Tablets daily x3 then 2 Kaylyn, 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 03/18/2018 by mouth daily x3 then 1 by mouth daily x3 Diphenhydramine HCL 1 every 12 30caps L50.0 Lacey, 01/31/2018 - 50mg hours for 7 Kaylyn, 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 06/12/2018 Capsules days then as needed Prednisone 2 pills by 30tabs L50.0 Lacey, 03/26/2017 - 20mg Tablets mouth twice a MD Winston 04/05/2017 day with food for 5 days, then 1 pill twice a day for 5 days Epinephrine use as directed 2units L50.0 Lacey, 03/26/2017 - 0.3mg/0.3ML for serious MD Winston 06/12/2018 Solution Auto-Inject allergic reaction Benzonatate 1 by mouth 30caps J20.9 Shoaib Buenrostro DO 07/12/2016 - 100mg three times a 07/22/2016 Capsules day Doxycycline 1 by mouth 20tabs J20.9 Shoaib Buenrostro DO 07/12/2016 - Monohydrate twice a day 07/22/2016 100mg Tablets Rosuvastatin Calcium 1 pill by mouth 30tabs E78.2 Lacey, 04/03/2016 - 40mg every evening MD Winston 09/04/2016 Tablets I25.10 Viagra 1/2 or 1 by 6tabs 607.84 Lacey, 03/18/2015 - 50mg Tablets mouth as needed MD Winston 06/12/2018 every day as directed Nitrostat 1 sl as needed 25tabs I25.10 Lacey, 11/09/2014 - 0.4mg Tablets chest pain MD Winston 03/10/2018 Sub Diphenhydramine HCL 2 PO QHS Lacey, 05/08/2014 - 25mgS Winston Sanchez MD 12/15/2018 Tablets Transderm-Nitro 1 sl q5m prn cp 25tabs Lacey, 12/05/2012 - 0.1mg/HR Winston Sanchez MD 11/08/2014 Patches 24HR Lorazepam 1 or 2 by mouth 60tabs F51.01 Lacey, 10/17/2011 - 1mg Tablets every night at MD Winston 03/14/2018 bedtime as needed sleep G47.00 Metoprolol Tartrate take one tablet 60tabs 401.1 Winston Rahman, 11/2009 - by mouth twice 07/16/2015 50mg Tablets daily 414.00 Lisinopril 1 by mouth 90tabs I10 Winston Rahman, 04/02/2010 - 5mg every day 03/26/2017 Tablets Aspirin Low Dose 1 po qd I25.10 Winston Rahman 05/14/2006 - Daniel JOYCE 01/31/2018 81mg Chewtabs Crestor 1 po qd E78.2 Zac Clifton MD - 40mg 04/03/2016 Tablets I25.10 Prednisone 2 tablets daily Unknown - 20mg Tablets for 4 Days 03/26/2017 Artificial Tears 1 drop in each eye Unknown - 1.4% Solution twice a day 12/17/2017 Hydrocortisone Plus apply as needed Unknown - 1% Cream 04/12/2017 Methylprednisolone as directed dose Lacey - 4mg Tablets pack MD Winston 04/12/2017 Oxycodone-Acetaminophen 1 by mouth every 4 Unknown - 5-325mg hours as needed 06/12/2018 Tablets Famotidine one by mouth once Unknown - 20mg Tablets a day 04/12/2017 Lovenox 1 sq every 12 Unknown - 80mg/0.8ML Solution hours 06/12/2018 Medications Administered in Office Medication SIG Qnty Indications Ordering Provider Date Depo Medrol 80 MG Kaylyn Rahman NP 01/31/2018 Injection Depo Medrol 80 MG Schedule, Nurses 03/27/2017 Injection Immunizations CPT Code Status Date Vaccine Lot # [id number] Given 05/26/2018 Flu Vaccine NOS Q2035 Given 06/19/2017 Afluria Imunization 07697 Given 12/27/2010 Tetanus And Diptheria Toxoids For Adult Use-preservative free 48832 Given 04/11/2010 Afluria Or Fluvirin Flu Vac Intramuscular 36971 Given 05/09/2007 Afluria Or Fluvirin Flu Vac Intramuscular 44459 Given 05/09/2007 Afluria Or Fluvirin Flu Vac Intramuscular 18179 Given 05/31/2006 Afluria Or Fluvirin Flu Vac Intramuscular 43653 Given 03/19/2006 Pneumococcal 23 Immunization Adult Or Immunosuppressed Patient Vital Signs Date Vital Result Comment 02/24/2019 8:22am Weight 269.00 lb Heart Rate 66 /min BP Systolic 142 mmHg BP Diastolic 90 mmHg Respiratory Rate 18 /min Height 70 inches 5'10" BMI (Body Mass Index) 38.6 kg/m2 12/15/2018 10:14am Weight 269.00 lb Heart Rate 60 /min BP Systolic 128 mmHg L BP Diastolic 76 mmHg L Respiratory Rate 18 /min Height 70 inches 5'10" BMI (Body Mass Index) 38.6 kg/m2 08/21/2018 9:26am Body Temperature 98.2 F Weight 261.00 lb Heart Rate 66 /min BP Systolic 142 mmHg BP Diastolic 82 mmHg Respiratory Rate 20 /min Height 70 inches 5'10" O2 % BldC Oximetry 9596 % BMI (Body Mass Index) 37.4 kg/m2 06/12/2018 10:43am Weight 265.00 lb Heart Rate 60 /min BP Systolic 120 mmHg BP Diastolic 80 mmHg Respiratory Rate 18 /min Height 70 inches 5'10" BMI (Body Mass Index) 38.0 kg/m2 03/18/2018 7:58am Body Temperature 96.8 F Weight 268.00 lb Heart Rate 66 /min BP Systolic 130 mmHg BP Diastolic 80 mmHg Respiratory Rate 18 /min Height 70 inches 5'10" BMI (Body Mass Index) 38.4 kg/m2 03/14/2018 8:26am Weight 266.00 lb Heart Rate 60 /min BP Systolic 120 mmHg BP Diastolic 70 mmHg 01/31/2018 10:22am Body Temperature 100.8 F tympanic Weight 264.44 lb Heart Rate 84 /min BP Systolic 122 mmHg BP Diastolic 74 mmHg Respiratory Rate 18 /min Height 70 inches 5'10" BMI (Body Mass Index) 37.9 kg/m2 12/17/2017 8:40am Weight 288.00 lb Heart Rate 66 /min BP Systolic 122 mmHg BP Diastolic 80 mmHg Respiratory Rate 18 /min Height 70 inches 5'10" BMI (Body Mass Index) 41.3 kg/m2 06/14/2017 1:53pm Weight 270.00 lb Heart Rate 84 /min BP Systolic 140 mmHg BP Diastolic 84 mmHg BP Systolic Recheck 126 mmHg L BP Diastolic Recheck 80 mmHg L Respiratory Rate 18 /min Height 70 inches 5'10" BMI (Body Mass Index) 38.7 kg/m2 04/12/2017 4:04pm Weight 272.25 lb Heart Rate 80 /min BP Systolic 128 mmHg BP Diastolic 74 mmHg Respiratory Rate 18 /min Height 70 inches 5'10" BMI (Body Mass Index) 39.1 kg/m2 03/26/2017 10:52am Body Temperature 98.8 F Weight 288.00 lb Heart Rate 82 /min BP Systolic 130 mmHg BP Diastolic 80 mmHg Respiratory Rate 18 /min Height 70 inches 5'10" O2 % BldC Oximetry 94 % Ra BMI (Body Mass Index) 41.3 kg/m2 10/05/2016 4:10pm Weight 284.00 lb Heart Rate 74 /min BP Systolic 138 mmHg BP Diastolic 78 mmHg Respiratory Rate 18 /min 07/12/2016 11:23am Body Temperature 98.7 F Weight 276.00 lb Heart Rate 72 /min BP Systolic 134 mmHg BP Diastolic 84 mmHg Respiratory Rate 20 /min Height 70 inches 5'10" O2 % BldC Oximetry 96 % BMI (Body Mass Index) 39.6 kg/m2 05/28/2016 2:24pm Weight 281.00 lb Heart Rate 72 /min BP Systolic 130 mmHg BP Diastolic 80 mmHg Respiratory Rate 18 /min Height 70 inches 5'10" BMI (Body Mass Index) 40.3 kg/m2 10/21/2015 1:49pm Weight 272.00 lb Heart Rate 76 /min BP Systolic 120 mmHg BP Diastolic 84 mmHg Respiratory Rate 18 /min Height 69.5 inches 5'9.50" BMI (Body Mass Index) 39.6 kg/m2 03/18/2015 2:19pm Weight 249.00 lb Heart Rate 74 /min BP Systolic 148 mmHg L/Reg BP Diastolic 88 mmHg L/Reg BP Systolic Recheck 134 mmHg L at rest BP Diastolic Recheck 70 mmHg L at rest Respiratory Rate 21 /min Height 69.5 inches 5'9.50" BMI (Body Mass Index) 36.2 kg/m2 07/08/2014 8:58am BP Systolic 124 mmHg L at rest BP Diastolic 74 mmHg L at rest 07/08/2014 8:58am Weight 268.00 lb Up 11# Heart Rate 68 /min BP Systolic 132 mmHg L/LG BP Diastolic 86 mmHg L/LG Respiratory Rate 22 /min Height 69.5 inches 5'9.50" 03/23/2014 10:01am BP Systolic 126 mmHg L at rest BP Diastolic 84 mmHg L at rest 03/23/2014 10:01am Weight 257.00 lb Up 14# Heart Rate 66 /min BP Systolic 128 mmHg L/LG BP Diastolic 94 mmHg L/LG Respiratory Rate 19 /min Height 69.5 inches 5'9.50" Results Test Date Facility Test Result H/L Range Note Drugs Of 12/15/2018 [facility] Amphetamines,Uri NEGATIVE <1000 ng/mL Abuse,Urine-[facility] ne Barbiturates,Urine NEGATIVE <200 ng/mL Benzodiazepines, Urine NEGATIVE <200 ng/mL Bupernorphrine/Norbu,Urine NEGATIVE <10 ng/mL Cocaine Metabolites,Urine NEGATIVE <300 ng/mL Methadone,Urine NEGATIVE <300 ng/mL Opiates,Urine NEGATIVE <300 ng/mL Oxycodone,Urine NEGATIVE <100 ng/mL Phencyclidine,Urine NEGATIVE <25 ng/mL Cannabinoids,Urine NEGATIVE <50 ng/mL Microalb/Creat Panel 12/15/2018 [facility] Creatinine, Urine 19.5 mg/dL Microalb/Creat Urine 56.53 ug/mgCreat High 0.00-30.00 Microalbumin 11.0 ug/ml 0.0-20.0 Basic (BMP) 12/08/2018 [facility] Sodium 140 mmol/L 135-146 1, 2 Potassium 4.2 mmol/L 3.5-5.2 Chloride# 103 mmol/L 97-110 3 Carbon Dioxide 26 mmol/L 24-34 Glucose 114 mg/dL High 70-105 BUN 16 mg/dL 6-26 Creatinine 0.9 mg/dL 0.5-1.4 Calcium 9.8 mg/dL 8.5-10.5 4 Female Egfr 66 >60 5 Male Egfr 88 >60 6 Anion Gap 11 mmol/L 5-15 7 Lipid Treatment 12/08/2018 [facility] Cholesterol 137 mg/dL 50-199 Triglycerides 178 mg/dL 30-200 HDL 32 mg/dL 29- 8 Chol/ HDL Ratio 4.3 ratio 4.0-6.7 VLDL 36 mg/dL High 2-29 LDL (Calc) 70 mg/dL 20-99 9 Alt 21 U/L 3-42 Ast 18 U/L 8-42 Hemoglobin A1c 12/08/2018 [facility] Hemoglobin A1c 6.3 % High 4.1-5.9 Estimated Average Glucose Calc 134 mg/dL 71-140 Basic ([facility]) 06/02/2018 [facility] Sodium 140 mmol/L 135-146 10, 11 Potassium 4.2 mmol/L 3.5-5.2 Chloride# 103 mmol/L 97-110 12 Carbon Dioxide 27 mmol/L 24-34 Glucose 129 mg/dL High 70-105 BUN 13 mg/dL 6-26 Creatinine 1.0 mg/dL 0.5-1.4 Calcium 9.6 mg/dL 8.5-10.2 Non Miley Egfr >60 >60 13 Miley Egfr >60 >60 14 Anion Gap 10 mmol/L 5-15 15 Lipid Treatment 06/02/2018 [facility] Cholesterol 124 mg/dL 50-199 Triglycerides 135 mg/dL 30-200 HDL 31 mg/dL 29- 16 Chol/ HDL Ratio 4.0 ratio 4.0-6.7 VLDL 27 mg/dL 2-29 LDL (Calc) 66 mg/dL 20-99 17 Alt 18 U/L 3-42 Ast 15 U/L 8-42 Hemoglobin A1c 06/02/2018 [facility] Hemoglobin A1c 6.0 % High 4.1-5.9 Estimated Average Glucose Calc 126 mg/dL 71-140 Laboratory test finding 06/02/2018 [facility] TSH 2.93 uIU/mL 0.35-4.94 PSA 0.400 ng/mL 0.000-4.000 18 Basic (BMP) 12/06/2017 [facility] Sodium 142 mmol/L 135-146 19, 20 Potassium 4.4 mmol/L 3.5-5.2 Chloride# 104 mmol/L 97-110 21 Carbon Dioxide 30 mmol/L 24-34 Glucose 128 mg/dL High 70-105 BUN 13 mg/dL 6-26 Creatinine 1.0 mg/dL 0.5-1.4 Calcium 9.7 mg/dL 8.5-10.2 Non Miley Egfr >60 >60 22 Miley Egfr >60 >60 23 Anion Gap 8 mmol/L 5-15 24 Lipid Treatment 12/06/2017 [facility] Cholesterol 159 mg/dL 50-199 Triglycerides 231 mg/dL High 30-200 HDL 28 mg/dL Low 29-71 25 Chol/ HDL Ratio 5.6 ratio 4.0-6.7 VLDL 46 mg/dL High 2-29 LDL (Calc) 85 mg/dL 20-99 26 Alt 29 U/L 3-42 Ast 23 U/L 8-42 Hemoglobin A1c 12/06/2017 [facility] Hemoglobin A1c 6.7 % High 4.1-5.9 Estimated Average Glucose Calc 146 mg/dL High 71-140 Basic ([facility]) 06/07/2017 [facility] Sodium 142 mmol/L 135-146 27, 28 Potassium 4.9 mmol/L 3.5-5.2 Chloride# 106 mmol/L 97-110 29 Carbon Dioxide 28 mmol/L 24-34 Glucose 113 mg/dL High 70-105 Creatinine 0.9 mg/dL 0.5-1.4 Calcium 10.0 mg/dL 8.5-10.2 Non Miley Egfr >60 >60 30 Miley Egfr >60 >60 31 Anion Gap 8 mmol/L 7-16 32 BUN 18 mg/dL 6-26 Lipid Treatment 06/07/2017 [facility] Cholesterol 131 mg/dL 50-199 Triglycerides 123 mg/dL 30-200 HDL 33 mg/dL 29- 33 Chol/ HDL Ratio 4.0 ratio 4.0-6.7 VLDL 25 mg/dL 2-29 LDL (Calc) 74 mg/dL 20-99 34 Alt 22 U/L 3-42 Ast 17 U/L 8-42 Hemoglobin A1c 06/07/2017 [facility] Hemoglobin A1c 7.1 % High 4.1-5.9 Estimated Average Glucose Calc 157 High 71-140 Lipid 04/05/2017 [facility] Cholesterol 204 mg/dL High 50-199 35 Triglycerides 523 mg/dL High 30-200 HDL 31 mg/dL - 36 Chol/ HDL Ratio 6.6 ratio 4.0-6.7 Basic (BMP) 04/05/2017 [facility] Sodium 136 mmol/L 135-146 37 Potassium 4.1 mmol/L 3.5-5.2 Chloride# 99 mmol/L 97-110 38 Carbon Dioxide 24 mmol/L 24-34 Glucose 349 mg/dL High 70-105 BUN 27 mg/dL High 6-26 Creatinine 0.9 mg/dL 0.5-1.4 Calcium 9.8 mg/dL 8.5-10.2 Non Miley Egfr >60 >60 39 Miley Egfr >60 >60 40 Anion Gap 13 mmol/L 7-16 41 Hemoglobin A1c 04/05/2017 [facility] Hemoglobin A1c 10.0 % High 4.1-5.9 Estimated Average Glucose Calc 240 High 71-140 Hepatic Panel (LFT) 04/05/2017 [facility] Total Protein 6.7 g/dL 6.0-8.0 Albumin 4.3 g/dL 3.6-4.9 Total Bilirubin 0.5 mg/dL 0.1-1.3 Direct Bilirubin 0.1 mg/dL 0.0-0.4 Alkaline Phosphatase 78 U/L 24-140 Alt 31 U/L 3-42 Ast 10 U/L 8-42 Laboratory test 04/05/2017 [facility] Hepatitis C 0.06 NONREACTIVE Nonreactive 42 finding Virus Antibody Direct LDL 80 mg/dL 20-99 43 Lipid Treatment 10/11/2016 [facility] Cholesterol 158 mg/dL 50-199 44 Triglycerides 257 mg/dL High 30-200 HDL 33 mg/dL - 45 Chol/ HDL Ratio 4.9 ratio 4.0-6.7 VLDL 51 mg/dL High 2-29 LDL (Calc) 74 mg/dL 20-99 46 Alt 31 U/L 3-42 Ast 19 U/L 8-42 Basic (BMP) 10/11/2016 [facility] Sodium 142 mmol/L 135-146 47 Potassium 4.6 mmol/L 3.5-5.2 Chloride# 104 mmol/L 97-110 48 Carbon Dioxide 29 mmol/L 24-34 Glucose 132 mg/dL High 70-105 BUN 16 mg/dL 6-26 Creatinine 0.9 mg/dL 0.5-1.4 Calcium 10.0 mg/dL 8.5-10.2 Non Miley Egfr >60 >60 49 Miley Egfr >60 >60 50 Anion Gap 14 mmol/L 7-16 51 Laboratory test finding 10/11/2016 [facility] TSH 3.59 uIU/mL 0.35-4.94 Hemoglobin A1c 7.3 % High 4.1-5.9 PSA 0.430 ng/mL 0.000-4.000 52 BMP (Basic) 05/19/2016 [facility] Glucose 124 mg/dL High 74-106 53 (315)- - BUN 25 mg/dL High 7-18 Creatinine 1.0 mg/dL Normal 0.6-1.3 Glom Filtration Rate, Estimate >60 mL/min Normal >60 If >60 mL/min Normal >60 54 BUN/Creat 25.0 ratio Normal Sodium 136 mmol/L Normal 136-145 Potassium 3.6 mmol/L Normal 3.5-5.1 Chloride 101 mmol/L Normal 98-107 Carbon Dioxide 27 mmol/L Normal 21-32 Anion Gap 8 mEq/L Normal 8-16 Calcium 8.8 mg/dL Normal 8.5-10.1 Lipid Panel 05/19/2016 [facility] Cholesterol 135 mg/dL Normal <200 55 (315)- - Triglycerides 281 mg/dL High <150 56 HDL Cholesterol 30 mg/dL Low >40 57 LDL-Cholesterol 49 mg/dL Normal < 100 58 Laboratory test finding 05/19/2016 [facility] Sgot/Ast 86 U/L High 15-37 (315)- - SGPT/Alt 62 U/L Normal 12-78 17-Hydroxypregnenolone 05/19/2016 [facility] 17- Hydroxypregnenolone 22 Low . 59 (315)- - ng/dL @ Did you verify? Y Laboratory test finding 10/14/2015 [facility] PSA 0.380 ng/mL 0.000-4.000 60, 61 TSH 3.23 uIU/mL 0.35-4.94 Total Testosterone Adult Male 346 ng/dL 285-950 Lipid Treatment 10/14/2015 [facility] Cholesterol 133 mg/dL 50-199 Triglycerides 298 mg/dL High 30-200 HDL 34 mg/dL 29-71 62 Chol/ HDL Ratio 3.9 ratio Low 4.0-6.7 VLDL 60 mg/dL High 2-29 LDL (Calc) 39 mg/dL 20-99 63 Alt 21 U/L 3-42 Ast 18 U/L 8-42 Basic (BMP) 10/14/2015 [facility] Sodium 138 mmol/L 134-142 Potassium 3.9 mmol/L 3.5-5.2 Chloride 105 mmol/L 97-109 Carbon Dioxide 27 mmol/L 24-34 Glucose 125 mg/dL High 70-105 BUN 19 mg/dL 6-26 Creatinine 0.9 mg/dL 0.5-1.4 Calcium 9.7 mg/dL 8.5-10.2 Anion Gap 10 mmol/L 6-14 Non Miley Egfr >60 >60 64 Miley Egfr >60 >60 65 LDL Cholesterol 03/12/2015 [facility] Cholesterol 142 mg/ dL < 200 66 Profile (315)- - Triglycerides 136 mg/dL < 150 67 HDL Cholesterol 44 mg/dL > 40 68 LDL-Cholesterol 71 mg/dL < 100 69 Basic Metabolic Panel 03/12/2015 [facility] Glucose 105 mg/dL 74-106 (315)- - BUN 13 mg/dL 7-18 Creatinine 0.9 mg/dL 0.6-1.3 Glom Filtration Rate, Estimate >60 mL/min >60 If >60 mL/min >60 70 BUN/Creat 14.4 ratio Sodium 137 mmol/L 136-145 Potassium 4.2 mmol/L 3.5-5.1 Chloride 105 mmol/L 98-107 Carbon Dioxide 29 mmol/L 21-32 Anion Gap 3 mEq/L Low 8-16 Calcium 9.4 mg/dL 8.5-10.1 Liver Function 03/12/2015 [facility] Total Protein 7.2 g/ dL 6.4-8.2 Tests (315)- - Albumin 3.6 g/dL 3.4-5.0 Globulin 3.6 g/dL 1.9-4.3 Alb/Glob 1.0 ratio Bilirubin,Total 0.4 mg/dL 0.2-1.0 Bilirubin,Direct < 0.1 mg/dL 0.0-0.2 Bilirubin,Indirect 0.3 mg/dL 0.0-0.9 Sgot/Ast 22 U/L 15-37 SGPT/Alt 46 U/L 12-78 Alkaline Phosphatase 66 U/L 45-117 LDL Cholesterol Profile 07/03/2014 N2N/CCD Import Cholesterol 146 mg/dL < 200 71 HDL Cholesterol 40 mg/dL > 40 72 LDL-Cholesterol 80 mg/dL < 100 73 Triglycerides 130 mg/dL < 150 74 Laboratory test finding 07/03/2014 N2N/CCD Import Anion Gap 11 mEq/L 8- 16 BUN 16 mg/dL 7-18 BUN/Creat 17.7 ratio Calcium 9.4 mg/dL 8.5-10.1 Carbon Dioxide 27 mmol/L 21-32 Chloride 105 mmol/L 98-107 Creatinine 0.9 mg/dL 0.6-1.3 Glom Filtration Rate, Estimate >60 mL/min >60 Glucose 110 mg/dL High 74-106 If >60 mL/min >60 75 Potassium 4.3 mmol/L 3.5-5.1 Prostate Specific Antigen 0.44 ng/mL 76 SGPT/Alt 63 U/L 12-78 Sgot/Ast 47 U/L High 15-37 Sodium 139 mmol/L 136-145 Laboratory test finding 07/04/2013 N2N/CCD Import Anion Gap 9 mEq/L 8- 16 BUN 16 mg/dL 5-23 BUN/Creat 20.0 ratio Calcium 9.3 mg/dL 8.5-10.1 Carbon Dioxide 28 mEq/L 18-29 Chloride 106 mmol/L 98-107 Creatinine 0.8 mg/dL 0.5-1.4 Glom Filtration Rate, Estimate >60 mL/min >60 Glucose 109 mg/dL 76-115 If >60 mL/min >60 77 Potassium 4.3 mmol/L 3.5-5.1 SGPT/Alt 32 U/L 30-65 Sgot/Ast 13 U/L Low 16-40 Sodium 139 mmol/L 136-145 LDL Cholesterol Profile 07/04/2013 N2N/CCD Import Cholesterol 176 mg/dL 120-200 HDL Cholesterol 49 mg/dL 29-83 LDL-Cholesterol 102 mg/dL 62-185 Triglycerides 124 mg/dL 16-231 1 12/14 preOV 2 Updated reference range on new analyzer 3 Updated reference range on new analyzer 4 Updated reference range 11-26-2018 5 Concerning GFR Guidelines for Americans: Normal function or mild renal disease, if clinically at risk: >/= 60 mL/min Moderately decreased: 30-59 Severely decreased: 15-29 Renal failure: <15 There is reduced accuracy above 60ml/min/1.73 m squared, but the numeric value may be clinically useful in the near 60 range 6 Concerning GFR Guidelines: Normal function or mild renal disease, if clinically at risk: >/= 60 mL/min Moderately decreased: 30-59 Severely decreased: 15-29 Renal failure: <15 There is reduced accuracy above 60ml/min/1.73 m squared, but the numeric value may be clinically useful in the near 60 range Glomerular Filtration Rate (GFR) is estimated based on the CKD-EPI equation, which assumes a steady state for creatinine as recommended by the National Kidney Disease Education Program in conjunction with the National Institutes of Health and the National Kidney Foundation. Clinical conditions in which it may be necessary to measure GFR by using clearance methods include extremes of age and body size, severe malnutrition or obesity, diseases of skeletal muscle, paraplegia or quadriplegia, vegetarian diet, rapidly changing kidney function, and calculation of the dose of potentially toxic drugs that are excreted by the kidneys. 7 Updated Reference Range 8 Per NCEP ATP III Guidelines: Results lower than 40 mg/dL are suggestive of increased risk for coronary artery disease. Results > or = to 60 mg/dL are considered a negative risk factor. 9 Per NCEP ATP III Guidelines: Normal Population <130 Patients with medical conditions: CHD/DM Optimal: <100 Borderline high: 130-159 High: 160-189 Very high: >189 10 06/15 preOV 11 Updated reference range on new analyzer 12 Updated reference range on new analyzer 13 Concerning GFR Guidelines: Normal function or mild renal disease, if clinically at risk: >/= 60 mL/min Moderately decreased: 30-59 Severely decreased: 15-29 Renal failure: <15 Glomerular Filtration Rate (GFR) is estimated based on the MDRD equation, which assumes a steady state for creatinine as recommended by the National Kidney Disease Education Program in conjunction with the National Institutes of Health and the National Kidney Foundation. Clinical conditions in which it may be necessary to measure GFR by using clearance methods include extremes of age and body size, severe malnutrition or obesity, diseases of skeletal muscle, paraplegia or quadriplegia, vegetarian diet, rapidly changing kidney function, and calculation of the dose of potentially toxic drugs that are excreted by the kidneys. 14 Concerning GFR Guidelines for Americans: Normal function or mild renal disease, if clinically at risk: >/= 60 mL/min Moderately decreased: 30-59 Severely decreased: 15-29 Renal failure: <15 15 Updated Reference Range 16 Per NCEP ATP III Guidelines: Results lower than 40 mg/dL are suggestive of increased risk for coronary artery disease. Results > or = to 60 mg/dL are considered a negative risk factor. 17 Per NCEP ATP III Guidelines: Normal Population <130 Patients with medical conditions: CHD/DM Optimal: <100 Borderline high: 130-159 High: 160-189 Very high: >189 18 Beginning 09/23/06 PSA values assayed at [facility] [employer] uses chemiluminescence methodology manufactured by [employer] for use on the DXI analyzer. Values obtained with different assay methods or kits can not be used interchangeably. Serum PSA measurement is not an absolute test for malignancy. The PSA value should be used in conjunction with information available from clinical evaluation and other diagnostic procedures. 19 5.18 preOV Fasting CC: DR BELLAMY (FAXED 12/07) 20 Updated reference range on new analyzer 21 Updated reference range on new analyzer 22 Concerning GFR Guidelines: Normal function or mild renal disease, if clinically at risk: >/= 60 mL/min Moderately decreased: 30-59 Severely decreased: 15-29 Renal failure: <15 Glomerular Filtration Rate (GFR) is estimated based on the MDRD equation, which assumes a steady state for creatinine as recommended by the National Kidney Disease Education Program in conjunction with the National Institutes of Health and the National Kidney Foundation. Clinical conditions in which it may be necessary to measure GFR by using clearance methods include extremes of age and body size, severe malnutrition or obesity, diseases of skeletal muscle, paraplegia or quadriplegia, vegetarian diet, rapidly changing kidney function, and calculation of the dose of potentially toxic drugs that are excreted by the kidneys. 23 Concerning GFR Guidelines for Americans: Normal function or mild renal disease, if clinically at risk: >/= 60 mL/min Moderately decreased: 30-59 Severely decreased: 15-29 Renal failure: <15 24 Updated Reference Range 25 Per NCEP ATP III Guidelines: Results lower than 40 mg/dL are suggestive of increased risk for coronary artery disease. Results > or = to 60 mg/dL are considered a negative risk factor. 26 Per NCEP ATP III Guidelines: Normal Population <130 Patients with medical conditions: CHD/DM Optimal: <100 Borderline high: 130-159 High: 160-189 Very high: >189 27 06/14 preOV Fastin hours Fastin hours Fastin hours 06/14 preOV Fastin hours 28 Updated reference range on new analyzer 29 Updated reference range on new analyzer 30 Concerning GFR Guidelines: Normal function or mild renal disease, if clinically at risk: >/= 60 mL/min Moderately decreased: 30-59 Severely decreased: 15-29 Renal failure: <15 Glomerular Filtration Rate (GFR) is estimated based on the MDRD equation, which assumes a steady state for creatinine as recommended by the National Kidney Disease Education Program in conjunction with the National Institutes of Health and the National Kidney Foundation. Clinical conditions in which it may be necessary to measure GFR by using clearance methods include extremes of age and body size, severe malnutrition or obesity, diseases of skeletal muscle, paraplegia or quadriplegia, vegetarian diet, rapidly changing kidney function, and calculation of the dose of potentially toxic drugs that are excreted by the kidneys. 31 Concerning GFR Guidelines for Americans: Normal function or mild renal disease, if clinically at risk: >/= 60 mL/min Moderately decreased: 30-59 Severely decreased: 15-29 Renal failure: <15 32 Updated reference range on new analyzer 33 Per NCEP ATP III Guidelines: Results lower than 40 mg/dL are suggestive of increased risk for coronary artery disease. Results > or = to 60 mg/dL are considered a negative risk factor. 34 Per NCEP ATP III Guidelines: Normal Population <130 Patients with medical conditions: CHD/DM Optimal: <100 Borderline high: 130-159 High: 160-189 Very high: >189 35 Early 04/14 preOV: he'll call to schedule 36 Per NCEP ATP III Guidelines: Results lower than 40 mg/dL are suggestive of increased risk for coronary artery disease. Results > or = to 60 mg/dL are considered a negative risk factor. 37 Updated reference range on new analyzer 38 Updated reference range on new analyzer 39 Concerning GFR Guidelines: Normal function or mild renal disease, if clinically at risk: >/= 60 mL/min Moderately decreased: 30-59 Severely decreased: 15-29 Renal failure: <15 Glomerular Filtration Rate (GFR) is estimated based on the MDRD equation, which assumes a steady state for creatinine as recommended by the National Kidney Disease Education Program in conjunction with the National Institutes of Health and the National Kidney Foundation. Clinical conditions in which it may be necessary to measure GFR by using clearance methods include extremes of age and body size, severe malnutrition or obesity, diseases of skeletal muscle, paraplegia or quadriplegia, vegetarian diet, rapidly changing kidney function, and calculation of the dose of potentially toxic drugs that are excreted by the kidneys. 40 Concerning GFR Guidelines for Americans: Normal function or mild renal disease, if clinically at risk: >/= 60 mL/min Moderately decreased: 30-59 Severely decreased: 15-29 Renal failure: <15 41 Updated reference range on new analyzer 42 0.06 NONREACTIVE 43 Per NCEP ATP III Guidelines: Normal population: <130 Patients with medical conditions: CHD/DM Optimal range: <100 Borderline high: 130-159 High: 160-189 Very high: >189 44 September 45 Per NCEP ATP III Guidelines: Results lower than 40 mg/dL are suggestive of increased risk for coronary artery disease. Results > or = to 60 mg/dL are considered a negative risk factor. 46 Per NCEP ATP III Guidelines: Normal Population <130 Patients with medical conditions: CHD/DM Optimal: <100 Borderline high: 130-159 High: 160-189 Very high: >189 47 Updated reference range on new analyzer 48 Updated reference range on new analyzer 49 Concerning GFR Guidelines: Normal function or mild renal disease, if clinically at risk: >/= 60 mL/min Moderately decreased: 30-59 Severely decreased: 15-29 Renal failure: <15 Glomerular Filtration Rate (GFR) is estimated based on the MDRD equation, which assumes a steady state for creatinine as recommended by the National Kidney Disease Education Program in conjunction with the National Institutes of Health and the National Kidney Foundation. Clinical conditions in which it may be necessary to measure GFR by using clearance methods include extremes of age and body size, severe malnutrition or obesity, diseases of skeletal muscle, paraplegia or quadriplegia, vegetarian diet, rapidly changing kidney function, and calculation of the dose of potentially toxic drugs that are excreted by the kidneys. 50 Concerning GFR Guidelines for Americans: Normal function or mild renal disease, if clinically at risk: >/= 60 mL/min Moderately decreased: 30-59 Severely decreased: 15-29 Renal failure: <15 51 Updated reference range on new analyzer 52 Beginning 09/23/06 PSA values assayed at [facility] uses chemiluminescence methodology manufactured by [employer] for use on the DXI analyzer. Values obtained with different assay methods or kits can not be used interchangeably. Serum PSA measurement is not an absolute test for malignancy. The PSA value should be used in conjunction with information available from clinical evaluation and other diagnostic procedures. 53 I10 E78.2 Z79.899 54 Note: Persistent reduction for 3 months or more in an eGFR <60 mL/min/1.73 m2 defines CKD. Patients with eGFR values >/=60 mL/min/1.73 m2 may also have CKD if evidence of persistent proteinuria is present. The original MDRD equation for estimated GFR is not valid for patients less than 18 years of age. Additional information may be found at www.kdoqi.org. 55 Reference Guidelines*: Desirable: ........... < 200 mg/dL Borderline High: ..... 200-239 mg/dL High: ................ >= 240 mg/dL * The National Cholesterol Education Program (NCEP) 56 Reference Guidelines*: Normal: ............. < 150 mg/dL Borderline High: .... 150-199 mg/dL High: ............... 200-499 mg/dL Very High: .......... > 500 mg/dL * Source: National Cholesterol Education Program (NCEP) 57 Reference Guidelines*: Low HDL: ..... < 40 mg/dL Normal: ..... 40-60 mg/dL Desirable: ... > 60 mg/dL *The National Cholesterol Education Program(NCEP) 58 Reference Guidelines*: Optimal:........... <100 mg/dL Near Optimal....... 100-129 mg/dL Borderline High.... 130-159 mg/dL High............... 160-189 mg/dL Very High.......... >=190 mg/dL * Source: National Cholesterol Education Program (NCEP) 59 Reference Range: Adults: 53 - 357 Performed at: [facility] [address] [place] [address] [id number] Seafood Preparer: Peter Phillips MD, Phone: [phone] 09/13 preOV 61 Beginning 09/23/06 PSA [place] assayed [place] [facility] [place] [facility] uses chemiluminescence methodology manufactured by [employer] for use on the DXI analyzer. Values obtained with different assay methods or kits can not be used interchangeably. Serum PSA measurement is not an absolute test for malignancy. The PSA value should be used in conjunction with information available from clinical evaluation and other diagnostic procedures. 62 Per NCEP ATP III Guidelines: Results lower than 40 mg/dL are suggestive of increased risk for coronary artery disease. Results > or = to 60 mg/dL are considered a negative risk factor. 63 Per NCEP ATP III Guidelines: Normal Population <130 Patients with medical conditions: CHD/DM Optimal: <100 Borderline high: 130-159 High: 160-189 Very high: >189 64 Concerning GFR Guidelines: Normal function or mild renal disease, if clinically at risk: >/= 60 mL/min Moderately decreased: 30-59 Severely decreased: 15-29 Renal failure: <15 Glomerular Filtration Rate (GFR) is estimated based on the MDRD equation, which assumes a steady state for creatinine as recommended by the National Kidney Disease Education Program in conjunction with the National Institutes of Health and the National Kidney Foundation. Clinical conditions in which it may be necessary to measure GFR by using clearance methods include extremes of age and body size, severe malnutrition or obesity, diseases of skeletal muscle, paraplegia or quadriplegia, vegetarian diet, rapidly changing kidney function, and calculation of the dose of potentially toxic drugs that are excreted by the kidneys. 65 Concerning GFR Guidelines for Americans: Normal function or mild renal disease, if clinically at risk: >/= 60 mL/min Moderately decreased: 30-59 Severely decreased: 15-29 Renal failure: <15 66 Reference Guidelines*: Desirable: ........... < 200 mg/dL Borderline High: ..... 200-239 mg/dL High: ................ >= 240 mg/dL * The National Cholesterol Education Program (NCEP) 67 Reference Guidelines*: Normal: ............. < 150 mg/dL Borderline High: .... 150-199 mg/dL High: ............... 200-499 mg/dL Very High: .......... > 500 mg/dL * Source: National Cholesterol Education Program (NCEP) 68 Reference Guidelines*: Low HDL: ..... < 40 mg/dL Normal: ..... 40-60 mg/dL Desirable: ... > 60 mg/dL *The National Cholesterol Education Program(NCEP) 69 Reference Guidelines*: Optimal:........... <100 mg/dL Near Optimal....... 100-129 mg/dL Borderline High.... 130-159 mg/dL High............... 160-189 mg/dL Very High.......... >=190 mg/dL * Source: National Cholesterol Education Program (NCEP) 70 Note: Persistent reduction for 3 months or more in an eGFR <60 mL/min/1.73 m2 defines CKD. Patients with eGFR values >/=60 mL/min/1.73 m2 may also have CKD if evidence of persistent proteinuria is present. The original MDRD equation for estimated GFR is not valid for patients less than 18 years of age. Additional information may be found at www.kdoqi.org. 71 Reference Guidelines*: Desirable: ........... < 200 mg/dL Borderline High: ..... 200-239 mg/dL High: ................ >= 240 mg/dL * The National Cholesterol Education Program (NCEP) 72 Reference Guidelines*: Low HDL: ..... < 40 mg/dL Normal: ..... 40-60 mg/dL Desirable: ... > 60 mg/dL *The National Cholesterol Education Program(NCEP) 73 Reference Guidelines*: Optimal:........... <100 mg/dL Near Optimal....... 100-129 mg/dL Borderline High.... 130-159 mg/dL High............... 160-189 mg/dL Very High.......... >=190 mg/dL * Source: National Cholesterol Education Program ( NCEP) 74 Reference Guidelines*: Normal: ............. < 150 mg/dL Borderline High: .... 150-199 mg/dL High: ............... 200-499 mg/dL Very High: .......... > 500 mg/dL * Source: National Cholesterol Education Program (NCEP) 75 Note: Persistent reduction for 3 months or more in an eGFR <60 mL/min/1.73 m2 defines CKD. Patients with eGFR values >/=60 mL/min/1.73 m2 may also have CKD if evidence of persistent proteinuria is present. The original MDRD equation for estimated GFR is not valid for patients less than 18 years of age. Additional information may be found at www.kdoqi.org. 76 THIS ASSAY IS NOT INTENDED A CANCER SCREENING TEST The concentration of PSA in a given specimen, determined with assays from different manufacturers, can vary due to differences in assay methods and reagent specificity. Values obtained from different assay methods cannot be used interchangeably. 77 Note: Persistent reduction for 3 months or more in an eGFR <60 mL/min/1.73 m2 defines CKD. Patients with eGFR values >/=60 mL/min/1.73 m2 may also have CKD if evidence of persistent proteinuria is present. The original MDRD equation for estimated GFR is not valid for patients less than 18 years of age. Additional information may be found at www.kdoqi.org. Procedures Date Code Description Status 08/21/2018 75848 Measure Blood Oxygen Level Single Determination Completed 01/31/2018 90730 Admin Of Inj (Therapeutic Phrophylactic Or Diagnostic Completed Subq Inj 12/17/2017 00701 Electrocardiogram Complete Completed 03/27/2017 23669 Admin Of Inj (Therapeutic Phrophylactic Or Diagnostic Completed Subq Inj 07/12/2016 28278 Measure Blood Oxygen Level Single Determination Completed 03/04/2012 [id number] Colonoscopy Completed Encounters Type Date Location Provider Dx Diagnosis Office Visit 12/15/2018 [facility], E11.9 Type 2 diabetes 10:30a MD Winston mellitus without complications I10 Essential (primary) hypertension E78.2 Mixed hyperlipidemia I25.10 [facility] heart disease [place] coronary artery w/o ang pctrs G47.00 Insomnia, unspecified M54.2 Cervicalgia Z68.38 Body mass index (BMI) 38.0-38.9, adult E66.9 Obesity, unspecified Z79.899 Other long term acute care registered nurse (current) drug therapy Z13.31 Encounter for screening for depression Office Visit 08/21/2018 9:30a [facility] Evelyn León PA J01.00 Acute maxillary sinusitis, unspecified Z68.37 Body mass index (BMI) 37.0-37.9, adult Office Visit 06/12/2018 11:00a [facility] Winston Rahman MD I10 Essential ( primary) hypertension E78.2 Mixed hyperlipidemia E11.9 Type 2 diabetes mellitus without complications G47.00 Insomnia, unspecified I65.23 Occlusion and stenosis of bilateral carotid arteries I25.10 [place] heart disease of [place] coronary artery w/o [facility] pctrs G47.9 Sleep disorder, unspecified Z68.38 Body mass index (BMI) 38.0-38.9, adult Office Visit 03/18/2018 8:00a [facility] Winston Rahman MD L50.0 Allergic urticaria G47.00 Insomnia, unspecified Z68.38 Body mass index (BMI) 38.0-38.9, adult Office Visit 03/14/2018 8:45a [facility] Winston Rahmna, G47.00 Insomnia, unspecified MD Office Visit 01/31/2018 10:30a [facility] Kaylyn Rahman, L50.0 Allergic urticaria 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 Office Visit 12/17/2017 8:45a [facility] Winston Rahman, I10 Essential ( primary) MD hypertension E78.2 Mixed hyperlipidemia E11.9 Type 2 diabetes mellitus without complications I25.10 [place] heart disease of [place] coronary artery w/o [facility] pctrs I65.23 Occlusion and stenosis of bilateral carotid arteries E66.9 Obesity, unspecified M25.561 Pain in RIGHT knee Z12.5 Encounter for screening for malignant neoplasm of prostate Z68.41 Body mass index (BMI) 40.0-44.9, adult Office Visit 06/14/2017 2:00p [facility] Winston Rahman MD I10 Essential ( primary) hypertension E78.2 Mixed hyperlipidemia E11.9 Type 2 diabetes mellitus without complications E66.9 Obesity, unspecified I65.23 Occlusion and stenosis of bilateral carotid arteries I25.10 [place]cl heart disease of [place] coronary artery w/o ang pctrs M25.561 Pain in RIGHT knee Office Visit 04/12/2017 4:15p [facility] Winston Rahman MD I10 Essential ( primary) hypertension E78.2 Mixed hyperlipidemia E66.9 Obesity, unspecified E11.9 Type 2 diabetes mellitus without complications I65.23 Occlusion and stenosis of bilateral carotid arteries I25.10 [place] heart disease of [place] coronary artery w/o ang pctrs Office Visit 03/26/2017 11:00a [facility] Winston Rahman MD L50.0 Allergic urticaria Office Visit 10/05/2016 4:15p [facility] Winston Rahman MD E78.2 Mixed hyperlipidemia I10 Essential (primary) hypertension I25.10 [place]scl heart disease of [place] coronary artery w/o ang pctrs E66.9 Obesity, unspecified I65.23 Occlusion and stenosis of bilateral carotid arteries F51.01 Primary insomnia Office Visit 07/12/2016 11:00a [facility] Shoaib Buenrostro DO J20.9 Acute bronchitis, unspecified Office Visit 05/28/2016 2:30p [facility] Lacey E78.2 Mixed hyperlipidemia MD Winston I10 Essential (primary) hypertension I25.10 [place] heart disease of [place] coronary artery w/o ang pctrs E66.9 Obesity, unspecified I65.23 Occlusion and stenosis of bilateral carotid arteries M25.549 Pain in joints of unspecified hand R94.5 Abnormal results of liver function studies R73.01 Impaired fasting glucose Office Visit 10/21/2015 2:00p [facility] Winston Rahman MD E78.2 Mixed hyperlipidemia I10 Essential (primary) hypertension I25.10 [place]cl heart disease of [place] coronary artery w/o ang pctrs E66.9 Obesity, unspecified I65.23 Occlusion and stenosis of bilateral carotid arteries R53.83 Other fatigue Z12.5 Encounter for screening for malignant neoplasm of prostate Office Visit 03/18/2015 2:30p [facility] Winston Rahman MD 401.1 Hypertension Benign 272.2 Hyperlipidemia Mixed 414.00 Coronary Atherosclerosis Unspec Type Vessel Chitina/Graft 278.00 Obesity Unspec 307.42 Sleep Disorder Persistent Initiating Or Maintaining Sleep 607.84 Impotence Organic Origin V76.44 Screening For Malig Eleno Prostate Plan of Treatment Future Appointment(s):06/11/2019 9:05 am - Schedule, Laboratory at [facility]2018 10:00 am - [place] Rahman MD at [facility]02/24/2019 - Winston Rahman, MDR20.2 Paresthesia of skinReferral:Zac Gaitan DR, Surgery,Orthopedic
[2019-04-19 11:54] VITALS: BP 146/84
--- NOTE | 2019-04-19 12:47 | UC ---
Respiratory Complaint HPI - HPI Summary HPI Summary: worsening cough and chest congestion of the past 4 days---sputum is thick dark yellow---quit smoking 15 years ago----pmh of CAD with cabg - History of Current Complaint Chief Complaint: UCGeneralIllness Stated Complaint: COUGH Time Seen by Provider: 04/19/19 12:32 Hx Obtained From: Patient Onset/Duration: Sudden Onset, Lasting Days - 4, Still Present Timing: Constant Pain Intensity: 0 Character: Cough: Productive Aggravating Factors: Recumbent Position Alleviating Factors: Upright Position Associated Signs And Symptoms: Positive: Negative - Allergies/Home Medications Allergies/Adverse Reactions: Allergies Allergy/AdvReac Type Severity Reaction Status Date / Time lisinopril Allergy Severe Rash Verified 04/19/19 11:54 oxycodone Allergy Intermediate Hives Verified 04/19/19 11:54 PMH/Surg Hx/FS Hx/Imm Hx Previously Healthy: No Endocrine History: Dyslipidemia Cardiovascular History: Cardiac Disease, Hypertension, Myocardial Infarction - Surgical History Surgical History: Yes Surgery Procedure, Year, and Place: 1985-L4/5 DISCECTOMY. 2004-QUADRUPLE BYPASS. 2010-QUADRUPLE BYPASS. STENTS PLACED in legs and heart. RIGHT KNEE ARTHROSCOPY - Family History Known Family History: Positive: Cardiac Disease, Diabetes, Other - [place] - Social History Occupation: Unemployed Lives: With Family Alcohol Use: None Substance Use Type: None Smoking Status (MU): Former Smoker Amount Used/How Often: 1 PPD X 30 YEARS Have You Smoked in the Last Year: No When Did the Patient Quit Smoking/Using Tobacco: 2004 Review of Systems All Other Systems Reviewed And Are Negative: Yes Constitutional: Positive: Negative Skin: Positive: Negative Eyes: Positive: Negative ENT: Positive: Negative Respiratory: Positive: Cough Cardiovascular: Positive: Negative Gastrointestinal: Positive: Negative Genitourinary: Positive: Negative Motor: Positive: Negative Neurovascular: Positive: Decreased Sensation Musculoskeletal: Positive: Negative Neurological: Positive: Negative Psychological: Positive: Negative Is Patient Immunocompromised?: No Physical Exam Triage Information Reviewed: Yes Appearance: No Pain Distress, Ill-Appearing - mild, Obese Vital Signs: Initial Vital Signs Temp 98.7 F 04/19/19 11:51 Pulse 64 04/19/19 11:51 Resp 19 04/19/19 11:51 BP 146/84 04/19/19 11:51 Pulse Ox 97 04/19/19 11:51 Vital Signs Reviewed: Yes Eye Exam: Normal Eyes: Positive: Conjunctiva Clear ENT Exam: Normal ENT: Positive: Normal ENT inspection, Hearing grossly normal, TMs normal, Uvula midline. Negative: Nasal congestion, Nasal drainage, Trismus, Muffled voice, Hoarse voice, Dental tenderness, Sinus tenderness Dental Exam: Normal Neck exam: Normal Neck: Positive: Supple, Nontender, No Lymphadenopathy Respiratory Exam: Normal Respiratory: Positive: Chest non-tender, Lungs clear, Normal breath sounds, No respiratory distress, No accessory muscle use Cardiovascular Exam: Normal Cardiovascular: Positive: RRR, No Murmur, Pulses Normal, Brisk Capillary Refill Musculoskeletal Exam: Normal Musculoskeletal: Positive: Strength Intact, ROM Intact, No Edema Neurological Exam: Normal Neurological: Positive: Alert, Muscle Tone Normal Psychological Exam: Normal Skin Exam: Normal Respiratory Course/Dx - Course Course Of Treatment: zithromax, tessalon, follow with pcp----to ed if symptoms worsen or fails to improve - Differential Dx/Diagnosis Provider Diagnosis: Bronchitis Discharge ED - Sign-Out/Discharge Documenting (check all that apply): Patient Departure All imaging exams completed and their final reports reviewed: No Studies - Discharge Plan Condition: Stable Disposition: HOME Prescriptions: Azithromycin TAB* [Zithromax TAB (Z-CRISTINA) 250 mg #6 tabs] 2 tab PO .TODAY, THEN 1 DAILY #1 cristina Benzonatate CAP* [Tessalon 100 MG CAP*] 100 mg PO TID PRN #30 cap PRN Reason: cough Patient Education Materials: Acute Bronchitis (ED), Hypertension (ED) Referrals: Winston Rahman MD [Primary Care Provider] - 1 Week - Billing Disposition and Condition Condition: STABLE Disposition: Home - Attestation Statements Provider Attestation: I was available for consult. This patient was seen by the ALONDRA. The patient was not presented to , seen by or examined by co -Dana Farley MD
== END 2019-04-19 13:00 | disposition home or self-care (01) ==
LOC: UCEAST 11:43
DX: J40 Bronchitis, not specified as acute or chronic (principal); E78.5 Hyperlipidemia, unspecified; I10 Essential (primary) hypertension; I25.2 Old myocardial infarction; Z87.891 Personal history of nicotine dependence; Z95.1 Presence of aortocoronary bypass graft; Z88.5 Allergy status to narcotic agent
CPT/HCPCS: 99212; G0463

== ENCOUNTER 2019-05-14 06:44 | Day surgery (SDC) | payer OTHER ==
[~2019-05-14 06:44] MED LIST: Buffered Lidocaine 1% SYRIN* 1 ML/SYRINGE INTRADERM ONE; Famotidine IV* 10 MG/ML 2 ML (20 mg) IV ONE; Lactated Ringers 1000 ML Bag* 1,000 ML IV SCH
[2019-05-14] MEDS ORDERED: fentaNYL* 50 MCG/ML 2 ML VIAL (100 MCG VIAL) ONE (07:06)
[2019-05-14] MEDS ORDERED: Propofol* 10 MG/ML 20 ML BTL ONE (07:06)
[2019-05-14] MEDS ORDERED: Midazolam* 1 MG/ML 2 ML VIAL (2 MG) ONE (07:06)
[2019-05-14] MEDS ORDERED: Lidocaine 2% PF * 5 ML VIAL ONE (07:06)
[2019-05-14] MEDS ORDERED: Naloxone* 0.4 MG/ML 1 ML VIAL IV PRN (07:15)
[2019-05-14] MEDS ORDERED: fentaNYL* 50 MCG/ML 2 ML VIAL (100 MCG VIAL) IV PRN (07:15)
[2019-05-14] MEDS ORDERED: Acetaminophen TAB* 325 MG PO PRN (07:15)
[2019-05-14] MEDS ORDERED: Ketorolac INJ* 30 MG/ML 1 ML VIAL IV PRN (07:15)
[2019-05-14] MEDS ORDERED: DiMENhydriNATE IV* 50 MG/ML VIAL IV PUSH PRN (07:15)
[2019-05-14] MEDS ORDERED: Bupivacaine 0.25% SDV* 30 ML ONE (07:20)
[2019-05-14] MEDS ORDERED: EPHEDrine (Pressors)* 50 MG/ML VIAL ONE (07:43)
[2019-05-14] MEDS ORDERED: Phenylephrine 40 MCG/ML SYRINGE ONE (07:48)
[2019-05-14] MEDS ORDERED: Ondansetron INJ* 2 MG/ML VIAL ONE (08:06)
[2019-05-14 10:03] VITALS: BP 125/64
--- NOTE | 2019-05-14 13:37 | OP ---
DATE OF OPERATION: 05/14/19 [facility] DATE OF : 58 SURGEON: Zac Gaitan MD ENDOSCOPY SUPPORT SPECIALIST: NOAM Gray ANESTHESIOLOGIST: Dr. Ye. ANESTHESIA: General. PRE-OP DIAGNOSES: 1. Left carpal tunnel syndrome. 2. Left index trigger finger. POST-OP DIAGNOSES: 1. Left carpal tunnel syndrome. 2. Left index trigger finger. OPERATIVE PROCEDURE: 1. Left endoscopic carpal tunnel release. 2. Left index trigger finger release. INDICATIONS: Emanuel has the above-mentioned conditions that progressive. We talked about risks and benefits. He wanted to proceed with surgery. ESTIMATED BLOOD LOSS: 2 mL. COMPLICATIONS: None. FINDINGS: See above and below. DESCRIPTION OF PROCEDURE: Emanuel was seen in the preoperative holding area. The correct site, side, and procedure identified. We came back to the operating room. The arm was prepped and draped in the usual fashion and a time- out was performed. The arm was exsanguinated with the Esmarch and the tourniquet was inflated to 225 mmHg. I first made a 1 cm incision just to ulnar to the palmaris longus tendon. Dissection was carried down bluntly and the distal and a brachial fascia was spread transversely. A two-prong skin hook was placed. The carpal tunnel was dilated and dried out and then the MicroAire endoscopic carpal tunnel system was introduced. The transverse carpal ligament was released from distal to proximal. Once I had fully released the ligament, I placed a Dhruv retractor. I confirmed the release. I then released the distal and brachial fascia proximally with the tenotomy scissors. The wound was irrigated out close with the 4-0 Prolene suture. I then made a 1 cm longitudinal incision over the A1 rosa of the index finger. Full-thickness flaps were bluntly raised off the tendon sheath. The 15- blade was used to incise the A1 rosa longitudinally. The release was completed distally and proximally with the tenotomy scissors. Once I had confirmed the release and strip the tendons off the tenosynovitis, I irrigated out the wound. The skin was closed with 4-0 nylon suture. 0.25% plain Marcaine was applied. Soft dressings were applied. He was taken to the recovery room in stable condition. [id number]/[facility] #: [id number] [facility]
== END 2019-05-14 09:48 | disposition home or self-care (01) ==
LOC: OREAST 06:44
PROVIDERS: ATTEND Orthopaedic Surgery Hand Surgery
DX: G56.02 Carpal tunnel syndrome, left upper limb (principal); M65.322 Trigger finger, left index finger; I25.10 Atherosclerotic heart disease of native coronary artery without angina pectoris; Z95.1 Presence of aortocoronary bypass graft; Z95.5 Presence of coronary angioplasty implant and graft; Z79.01 Long term (current) use of anticoagulants; E11.9 Type 2 diabetes mellitus without complications; Z79.84 Long term (current) use of oral hypoglycemic drugs; M19.90 Unspecified osteoarthritis, unspecified site; E78.00 Pure hypercholesterolemia, unspecified
CPT/HCPCS: J2250; J2405; J2704; J3010; J3490

== ENCOUNTER 2019-06-04 06:26 | Day surgery (SDC) | payer OTHER ==
[~2019-06-04 06:26] MED LIST changes: +Famotidine IV* 10 MG/ML 2 ML (20 mg) ONE; +Metoclopramide IV* 5 MG/ML 2 ML VIAL IV SLOW PU ONE
[2019-06-04] MEDS ORDERED: Metoclopramide IV* 5 MG/ML 2 ML VIAL ONE (06:57)
[2019-06-04] MEDS ORDERED: Famotidine IV* 10 MG/ML 2 ML (20 mg) ONE (06:57)
[2019-06-04] MEDS ORDERED: Betamethasone INJ* 6 MG/ML 5 ML VIAL (30 MG) ONE (07:14)
[2019-06-04] MEDS ORDERED: Bupivacaine 0.25% SDV* 30 ML ONE (07:14)
[2019-06-04] MEDS ORDERED: Lidocaine 1% MPF* 2 ML VIAL ONE (07:14)
[2019-06-04] MEDS ORDERED: Lidocaine 2% PF * 5 ML VIAL ONE (07:17)
[2019-06-04] MEDS ORDERED: Propofol* 10 MG/ML 20 ML BTL ONE (07:17)
[2019-06-04] MEDS ORDERED: Ondansetron INJ* 2 MG/ML VIAL ONE ×2 (07:17→07:53)
[2019-06-04] MEDS ORDERED: Naloxone* 0.4 MG/ML 1 ML VIAL IV PRN (07:34)
[2019-06-04] MEDS ORDERED: fentaNYL* 50 MCG/ML 2 ML VIAL (100 MCG VIAL) IV PRN (07:34)
[2019-06-04] MEDS ORDERED: DiMENhydriNATE IV* 50 MG/ML VIAL IV PUSH PRN (07:34)
[2019-06-04] MEDS ORDERED: Phenylephrine 40 MCG/ML SYRINGE ONE (08:26)
[2019-06-04] MEDS ORDERED: EPHEDrine (Pressors)* 50 MG/ML VIAL ONE (08:26)
[2019-06-04 09:10] VITALS: BP 111/65
--- NOTE | 2019-06-04 12:00 | OP ---
DATE OF OPERATION: 06/04/19 [facility] DATE OF : 58 SURGEON: Zac Gaitan MD KITCHEN MECHANIC: NOAM Gray ANESTHESIOLOGIST: Dr. Erazo. ANESTHESIA: General. PRE-OP DIAGNOSES: 1. Right carpal tunnel syndrome. 2. Left small trigger finger. POST-OP DIAGNOSES: 1. Right carpal tunnel syndrome. 2. Left small trigger finger. OPERATIVE PROCEDURE: 1. Right endoscopic carpal tunnel release. 2. Left small trigger finger steroid injection. INDICATIONS: Mr. Riggs has the aforementioned conditions. We talked about options and he wanted to proceed with surgery. He understands there is risk. ESTIMATED BLOOD LOSS: 2 mL. COMPLICATIONS: None. FINDINGS: See above and below. DESCRIPTION OF PROCEDURE: Mr. Riggs was seen in the preoperative holding area. The correct site, side, and procedures were identified. We came back to the operating room. The arm was prepped and draped in the usual fashion and a time-out was performed. The arm was exsanguinated with the Esmarch and the tourniquet was inflated to 225 mmHg. I went ahead and made a 1 cm transverse incision just ulnar to the palmaris longus tendon area. Dissection was carried down and the distal antebrachial fascia was split bluntly transversally with the tenotomy scissors. A 2 prong skin hook was placed under the fascia, the synovial stripper followed by the elevators and the Q-tip was used to dilate and dry out the carpal tunnel. The MicroAire endoscopic carpal tunnel system was then introduced. When in the appropriate location, the blade was elevated and the release of the ligament was carried out from distal to proximal under direct visualization on the monitor. Once I completed the release distally, I released the distal antebrachial fascia proximally. Once I had confirmed the release, the wound was irrigated out and the skin was closed with a 4-0 Prolene suture and a Steri-Strips. 0.25% plain Marcaine was infiltrated and a soft dressing was applied. Please note that after having a time-out, I had gone over and I had cleansed the skin over the left small finger A1 rosa area with alcohol. A 25-gauge needle was then used to inject 1 mL of 1% lidocaine and 6 mg of betamethasone into the area. A Band-Aid was applied there. [id number]/[facility] #: [id number] [facility]
== END 2019-06-04 09:27 | disposition home or self-care (01) ==
LOC: OREAST 06:26
PROVIDERS: ATTEND Orthopaedic Surgery Hand Surgery
DX: G56.01 Carpal tunnel syndrome, right upper limb (principal); M65.352 Trigger finger, left little finger; E11.9 Type 2 diabetes mellitus without complications; Z79.84 Long term (current) use of oral hypoglycemic drugs; Z95.1 Presence of aortocoronary bypass graft; Z95.5 Presence of coronary angioplasty implant and graft; Z96.659 Presence of unspecified artificial knee joint; E78.5 Hyperlipidemia, unspecified; I25.10 Atherosclerotic heart disease of native coronary artery without angina pectoris; Z79.01 Long term (current) use of anticoagulants; Z87.891 Personal history of nicotine dependence; Z68.36 Body mass index [BMI] 36.0-36.9, adult; I65.29 Occlusion and stenosis of unspecified carotid artery
CPT/HCPCS: J0702; J2405; J2704; J2765; J3490

== ENCOUNTER 2019-08-13 08:29 | Day surgery (SDC) | payer OTHER ==
[~2019-08-13 08:29] MED LIST changes: -Famotidine IV* 10 MG/ML 2 ML (20 mg) IV ONE; -Famotidine IV* 10 MG/ML 2 ML (20 mg) ONE; -Metoclopramide IV* 5 MG/ML 2 ML VIAL IV SLOW PU ONE
[2019-08-13] MEDS ORDERED: Bupivacaine 0.25% SDV* 30 ML ONE (09:47)
[2019-08-13] MEDS ORDERED: fentaNYL* 50 MCG/ML 2 ML VIAL (100 MCG VIAL) ONE (09:50)
[2019-08-13] MEDS ORDERED: Midazolam* 1 MG/ML 2 ML VIAL (2 MG) ONE (09:50)
[2019-08-13] MEDS ORDERED: Propofol* 10 MG/ML 20 ML BTL ONE (09:51)
[2019-08-13] MEDS ORDERED: Naloxone* 0.4 MG/ML 1 ML VIAL IV PRN (11:06)
[2019-08-13 12:01] VITALS: BP 113/57
--- NOTE | 2019-08-14 00:38 | OP ---
DATE OF OPERATION: 08/13/19 [facility] DATE OF : 58 SURGEON: Zac Gaitan MD. SYSTEMS SUPPORT ENGINEER: None. ANESTHESIOLOGIST: Dr. Erazo. ANESTHESIA: Local MAC. PRE-OP DIAGNOSIS: Left small trigger finger. POST-OP DIAGNOSIS: Left small trigger finger. OPERATIVE PROCEDURE: Left small trigger finger release. INDICATIONS: Emanuel has a trigger finger. We talked about treatment options, risks, and benefits. He wanted to proceed. ESTIMATED BLOOD LOSS: 2 mL. COMPLICATIONS: None. FINDINGS: See above and below. DESCRIPTION OF PROCEDURE: Emanuel was seen in the preoperative holding area. The correct side, site, and procedure was identified. We came back to the operating room where a 0.25% Marcaine was infiltrated. The arm was prepped and draped in the usual fashion and a time-out was performed. The arm was exsanguinated and the tourniquet was inflated. An 1 cm incision was made longitudinally over the A1 rosa. Dissection was carried down. Full - thickness flaps were raised off the tendon sheath. Ragnell retractors were placed. The A1 rosa was incised longitudinally in line with the tendons. Once I completed that release, I released a little bit of fascia proximally. At this point, everything was looking good. There was no triggering. I had him flex and open and close the hand multiple times. The wound was irrigated out. The skin was closed with 4-0 nylon sutures. Soft dressing was applied and he was taken to the recovery room in stable condition. [id number]/[facility] #: [id number] MTDD
== END 2019-08-13 12:01 | disposition home or self-care (01) ==
LOC: OREAST 08:29
PROVIDERS: ATTEND Orthopaedic Surgery Hand Surgery
DX: M65.352 Trigger finger, left little finger (principal); E11.8 Type 2 diabetes mellitus with unspecified complications; I10 Essential (primary) hypertension; I25.10 Atherosclerotic heart disease of native coronary artery without angina pectoris; I73.9 Peripheral vascular disease, unspecified; E78.5 Hyperlipidemia, unspecified; Z95.1 Presence of aortocoronary bypass graft; Z87.891 Personal history of nicotine dependence; Z79.01 Long term (current) use of anticoagulants; Z79.82 Long term (current) use of aspirin; Z79.84 Long term (current) use of oral hypoglycemic drugs; Z88.5 Allergy status to narcotic agent; Z88.8 Allergy status to other drugs, medicaments and biological substances
CPT/HCPCS: J2250; J2704; J3010; J3490